=== PATIENT | male | born 1955 | race Caucasian/White ===

== ENCOUNTER 2017-05-05 01:21 | Outpatient (CLI) | payer BC ==
[~2017-05-05] VITALS: Ht 182.9 cm; Wt 104.3 kg
--- NOTE | ~2017-05-05 | HP ---
PATIENT: JORDON MARKS MEDICAL RECORD: [id number] ACCOUNT: [id number] LOCATION:[address] : 51 ADMISSION DATE: 05/05/17 HISTORY AND PHYSICAL EXAMINATION ADMITTING DIAGNOSES: 1. Acute anterior myocardial infarction. 2. Coronary artery disease. 3. Previous percutaneous transluminal coronary angioplasty and stenting to the left anterior descending. 4. Hypertension. 5. Hyperlipidemia. HISTORY OF PRESENT ILLNESS: Mr. Marks presents with acute onset of chest discomfort. EKG is compatible with an acute anterolateral myocardial infarction. He does have a history of angioplasty and PTCA and stent to the LAD, hypertension, and hyperlipidemia. REVIEW OF SYSTEMS: The patient reports easy bruising but reports no swollen glands. The patient reports no fever, no night sweats, no significant weight gain, no significant weight loss. No significant exercise tolerance. The patient reports no dry eyes, no irritation, no vision change. Patient reports no difficulty hearing and no ear pain. Patient reports no frequent nose bleeds or nose and sinus problems. Patient reports on arm pain on exertion. No shortness of breath while lying down. No history of heart murmur. Patient reports no cough, no wheezing or coughing up blood. Patient reports no abdominal pain, no vomiting. Normal appetite. No diarrhea and not vomiting blood. No nausea and no constipation. Patient reports no incontinence. No difficulty urinating. No hematuria. No increased frequency. Patient reports no muscle aches. No weakness, no arthralgias, no back pain. No swelling of the extremities. Patient reports no abnormal mole, no jaundice, no rashes. Reports no loss of consciousness. No weakness and no numbness. No seizures, dizziness, or headaches. The patient reports no depression, no sleep disturbance, feeling safe in a relationship and no alcohol abuse. Patient reports on fatigue. Reports no runny nose or sinus pressure. No itching, no hives, and no frequent sneezing. PHYSICAL EXAMINATION: GENERAL APPEARANCE: Well-nourished, well-developed, appears stated age. Level of distress, comfortable. PSYCHIATRIC: Mental status, alert, normal affect. Orientation, oriented to time, place and person. EYES: Lids and conjunctiva, noninjected. No discharge, no pallor. ENT: Lips, teeth, gums, normal dentition. Oropharynx, no cyanosis, no pallor. NECK: Carotid arteries, bilateral normal upstroke, no bruits, no thrills. JUGULAR VEINS: No jugular venous pressure or distention. CERVICAL LYMPH NODES: Nontender, nonenlarged. THYROID: Not enlarged. Nontender. No nodules. LUNGS: Respiratory effort, unlabored. CHEST: Normal curvature. No thoracic deformity. No chest wall tenderness. Percussion, resonant. Auscultation, clear. No wheezes, no rales, no rhonchi. CARDIOVASCULAR: Precordial exam, nondisplaced. No heaves or pericardial thrills. Rate and rhythm, regular. Heart sounds, normal S1, normal S2. No S3, no gallop, no rub. Systolic murmur, not heard. Diastolic murmur, not heard. EXTREMITIES: No cyanosis, no edema. Peripheral pulses, full and equal in all HISTORY AND PHYSICAL [id number] JORDON MARKS extremities, except as noted. No bruits appreciated. ABDOMEN: Soft, nondistended. Normal aorta. No bruit. Nontender. No masses. Liver, nontender, no hepatomegaly. Spleen, nontender, no splenomegaly. MUSCULOSKELETAL: No joint tenderness. No joint swelling. No erythema. NEUROLOGICAL: Normal gait, normal strength, normal tone. SKIN: Warm and dry. OVERALL IMPRESSION: Acute anterior myocardial infarction. PLAN: We will proceed with coronary angiography. Further care depends upon the findings of the angiography. TRANSINT:[id number] Voice Confirmation ID: [id number] DOCUMENT ID: [id number] JOVANY FONG MD at 1153 CC: [id number] DICTATION DATE: 05/05/17 020 SWITCHMAN SUPERVISOR: 05/05/17 0225 [facility] [address] [place] [address]
--- NOTE | ~2017-05-05 | OP ---
PATIENT NAME: JORDON MARKS MEDICAL RECORD: [id number] :51 LOCATION:D.M2 D.0 ADMISSION DATE: SURGEON: JOVANY FONG MD DATE OF OPERATION: 05/05/2017 PROCEDURES: 1. PTCA and stent to LAD. 2. Left heart catheterization. 3. Selective coronary angiography. 4. Left ventriculogram. INDICATIONS: Acute anterior myocardial infarction. PROCEDURE IN DETAIL: After informed consent was obtained and after detailed explanation of risks, benefits as well as alternative therapies, the patient elected to proceed with angiogram and angioplasty. The right femoral area was prepped and draped in normal sterile fashion. The right femoral artery was cannulated via modified Seldinger technique with placement of 6-Kyrgyz sheath. All catheters exchanged through this sheath. FINDINGS: The left ventriculogram was performed in standard 30-degree REED view reveals anteroapical hypokinesis, ejection fraction 40%. SELECTIVE CORONARY ANGIOGRAPHY: 1. Left main showed no significant angiographic disease. 2. Left anterior descending has a 90% stenosis proximally, followed by 80% stenosis in the mid vessel, between these are previously placed stents that are widely patent. 3. Left circumflex has mild irregularities to moderate irregularities but no flow-limiting stenosis. 4. Right coronary has gdtm-ka-ilutprkz irregularities but no discrete flow-limiting stenosis. PTCA AND STENT OF THE LAD: The stents used were 2.25 x 22 and 2.5 x 18, both [place] stents. Result was 0% residual stenosis. OVERALL IMPRESSION: Successful percutaneous transluminal coronary angioplasty and stent of the left anterior descending going from 90% initial stenosis to 0% residual. TRANSINT:[id number] Voice Confirmation ID: [id number] DOCUMENT ID: [id number] JOVANY FONG MD at 1153 CC: [id number] DICTATION DATE: 05/05/17 0243 CHANGE MANAGEMENT: 05/05/17 0325 [address] [place] [id number] [place] [id number]
--- NOTE | ~2017-05-05 | HEMODYNAMI ---
PATIENT:JORDON MARKS MEDICAL RECORD: [id number] : 51 LOCATION:[facility] ADMISSION DATE: 05/05/17 Generatedon:05/05/20172:46 Patient name: JORDON MARKS Patient #: [id number] SSN: : 1955 Date of study: 05/05/2017 Page: Of Hemodynamic Procedure Report Patient Data Patient Demographics Procedure consent was obtained First Name: JORDON Gender: Male Last Name: KENDRICK : 1955 Patient #: [id number] Age: 62 year(s) Race: Unknown Additional ID: [id number] Contact details Address: [place] [address] State: [place] City: [place] Zip code: [address] Admission Admission Data Admission Date: 05/05/2017 Admission Time: 1:21 Procedure Procedure Types Cath Procedure Diagnostic Procedure Sedation Charges Moderate Sedation up to 15 minutes [facility] w/Coronaries PCI Procedure AMI/SVG/QUILL STRIPPER PTCA or Stent AMI-BMS/DONTE Initial Procedure Description Procedure Date Procedure Date: 05/05/2017 Procedure Start Time: 2:23 Procedure End Time: 2:45 Procedure Staff Name Function Jg Peña MD Performing Physician Judd Gonzales RN Nurse Klever Swift RT Scrub Tali Perez RT Scrub John Harper RT Monitor Procedure Data Cath Procedure Fluoroscopy Diagnostic fluoroscopy Total fluoroscopy Time: 3.7 time: 3.7 min min Diagnostic fluoroscopy Total fluoroscopy dose: 751 dose: 751 mGy mGy Contrast Material Contrast Material Type Amount (ml) Isovue 300 71 Entry Location Entry Primary Successful Side Size Upsize Upsize Entry Closure Succes sful Closure Location (Fr) 1 (Fr) 2 (Fr) Remarks Device Remarks Femoral Right 6 Fr Exoseal artery Short Estimated blood loss: 10 ml Diagnostic catheters Device Type Used For End Catheter Placement MULTIPACK Pigtail 5 Fr Procedure catheter MULTIPACK JL 4.0 5Fr Procedure catheter MULTIPACK 3DRC 5Fr Procedure catheter Procedure Complications No complications Procedure Medications Medication Administration Route Dosage Oxygen NC 2 l/min Lidocaine 2% added to field 20 Heparin Flush Bag added to field 2 bags (1000units/500ml NS) 0.9% NaCl I.V. 100 ml/hr Versed I.V. 1 mg Fentanyl I.V. 50 mcg Versed I.V. 1 mg Fentanyl I.V. 50 mcg Heparin Bolus I.V. 4000 units Integrilin (Bolus I.V. 9 ml 2mg/ml) Lopressor I.V. 5 mg Hemodynamics Rest Heart Rate: 85 (bpm) Pressure Samples Time Site Value (mmHg) Purpose Heart Use Rate(bpm) 2:24 LV 95/12,22 Snapshot 87 Snapshots Pre Cath Intra NCS Post Cath Vital Signs Time Heart Resp SPO2 NIBP (mmHg) Rhythm Pain Sedation Rate (ipm) (%) Status Level (bpm) 2:16:27 87 21 97 125/75(104) NSR w/ ST 0 (11) 10(A) Elevation , No pain 2:21:04 85 14 97 118/78(98) NSR w/ ST 0 (11) 10(A) Elevation , No pain 2:25:42 90 15 94 116/73(94) NSR w/ ST 0 (11) 9(A) Elevation , No pain 2:30:19 92 15 94 115/81(108) NSR w/ ST 0 (11) 9(A) Elevation , No pain 2:34:57 94 16 94 121/72(88) NSR w/ ST 0 (11) 9(A) Elevation , No pain 2:39:18 84 12 94 109/77(99) NSR w/ ST 0 (11) 10(A) Elevation , No pain 2:43:54 85 13 96 112/78(101) NSR w/ ST 0 (11) 10(A) Elevation , No pain Medications Time Medication Route Dose Verified Delivered Reason Notes Effectiveness by by 2:18:13 Oxygen NC 2 Jg Whaley used for l/min Mariana Gonzales relations manager 2:18:19 Lidocaine 2% added 20ml Jg Gregorio for local to vial Mariana Peña MD anesthetic field 2:18:24 Heparin Flush added 2 Jg Gregorio used for Bag to bags Mariana Peña MD procedure (1000units/500ml field NS) 2:18:34 0.9% NaCl I.V. 100 Jg Buffie Per physician ml/hr Mariana Gonzales RN 2:18:44 Versed I.V. 1 mg Jg Lopezie for sedation Mariana Gonzales RN 2:18:49 Fentanyl I.V. 50 Jg Johnie for sedation mcg Mariana Gonzales RN 2:22:07 Versed I.V. 1 mg Jg Lopezie for sedation Mariana Gonzales RN 2:22:11 Fentanyl I.V. 50 Jg Whaley for sedation mcg Mariana Gonzales RN 2:27:47 Heparin Bolus I.V. 4000 Jg Lopezie for verifie d units Mariana Gonzales RN anticoagulation with dr peña 2:29:17 Integrilin I.V. 9 ml Jg Whaley for wasted 1 (Bolus 2mg/ml) Mariana Gonzales RN antiplatelet ml of therapy vial 2:36:21 Lopressor I.V. 5 mg Jg Whaley Per physician Mariana Gonzales RN Procedure Log Time Note 2:00:20 Judd Gonzales RN sent for patient. Start room use. 2:05:22 Time tracking: Call back 2:05:26 Plan of Care:Hemodynamics will remain stable., Cardiac rhythm will remain stable., Comfort level will be maintained., Respiratory function will remain adequate., Patient/ family verbilizes understanding of procedure., Procedure tolerated without complication., Recovers from procedure without complications.. 2:10:18 Patient arrives emergently. 2:10:19 Patient received from ED to CCL 1 Alert and oriented. Tansferred to table in Supine position. 2:10:20 Warm blankets applied, and yuval hugger turned on for patient comfort. 2:10:21 Correct patient and procedure confirmed by team. 2:10:22 Signed procedure consent form obtained from patient. 2:10:23 ECG and BP/O2 sat monitors applied to patient. 2:15:39 Vital chart was started 2:15:41 Baseline sample Acquired. 2:15:47 Rhythm: sinus rhythm 2:15:47 Full Disclosure recording started 2:16:15 H&P Date Dictated: 05/05/2017 Emergent; H&P N/A. 2:16:18 Pre-procedure instructions explained to patient. 2:16:18 Pre-op teaching completed and patient verbalized understanding. 2:16:20 Family in waiting room. 2:16:22 Patient NPO since Midnight. 2:16:24 Is the patient allergic to Iodine/contrast media? No. 2:16:26 Is patient on blood thinner?Yes 2:16:29 ACC The patient was administered the following blood thiners within the last 24 hours: ACCPlavix 2:16:30 Patient diabetic? No. 2:16:33 Previous problem with sedation/anesthesia? No ? 2:16:34 Snore? Yes 2:16:38 Sleep apnea? Yes 2:16:40 Deviated septum? No 2:16:40 Opens mouth fully? Yes 2:16:41 Sticks out tongue? Yes 2:16:43 Airway obstruction? No ? 2:16:45 Dentures? No ? 2:16:48 Pre procedure: right dorsailis pedis pulse 1+ Palpable, but thready & weak; easily obliterated 2:16:52 Patient pain scale 4/10 ?. 2:17:01 IV patent on arrival in right antecubital with 0.9% NaCl at [facility]. 2:17:03 Lab results completed and on chart. 2:17:09 Right groin area was prepped with chlora-prep and draped in sterile fashion 2:17:10 Alarms reviewed by R. N. 2:17:10 Sharps counted by scrub and verified by R.N. 2:17:12 --------ALL STOP TIME OUT------ 2:17:12 Final Timeout: patient, procedure, and site verified with staff and physician. All members of the team are in agreement. 2:17:16 Right groin site verified by team. 2:17:18 Physical assessment completed. ASA score P 2 - A patient with mild systemic disease as per Jg Peña MD. 2:17:21 Sedation plan: IV Moderate Sedation Medication:Versed, Fentanyl 2:18:13 Oxygen 2 l/min NC was administered by Judd Gonzales RN; used for procedure; 2:18:19 Lidocaine 2% 20ml vial added to field was administered by Jg Peña MD; for local anesthetic; 2:18:24 Heparin Flush Bag (1000units/500ml NS) 2 bags added to field was administered by Jg Peña MD; used for procedure; 2:18:34 0.9% NaCl 100 ml/hr I.V. was administered by Judd Gonzales RN; Per physician; 2:18:44 Versed 1 mg I.V. was administered by Judd Gonzales RN; for sedation; 2:18:49 Fentanyl 50 mcg I.V. was administered by Judd Gonzales RN; for sedation; 2:21:53 Zero performed for pressure channel P1 2:22:07 Versed 1 mg I.V. was administered by Judd Gonzales RN; for sedation; 2:22:11 Fentanyl 50 mcg I.V. was administered by Judd Gonzales RN; for sedation; 2:23:19 Procedure started. 2:23:25 Local anesthetic to right femoral artery with Lidocaine 2% by Jg Peña MD.INITIAL ACCESS ONLY 2:23:26 Use device set Femoral Dx 2:23:27 ACIST Syringe (53911) opened to sterile field. 2:23:28 Bag Decanter (2001S) opened to sterile field. 2:23:29 Medline Cath Pack ([id number]) opened to sterile field. 2:23:31 Tegaderm 4 x 4 (1626W) opened to sterile field. 2:23:32 ACIST Hand Control (23114) opened to sterile field. 2:23:33 ACIST Manifold (04884) opened to sterile field. 2:23:36 PERCUTANEOUS ENTRY 19GA needle opened to sterile field. 2:23:38 DIAGNOSTIC WIRE .035 260cm J wire (373767) opened to sterile field. 2:23:44 DIAGNOSTIC Multipack 5Fr catheter set (HH2054) opened to sterile field. 2:23:55 SHEATH 6FR Nixon (AIM179) opened to sterile field. 2:23:56 INFLATOR Merit BasixCompak (AI2289) opened to sterile field. 2:24:07 A 6 Fr Short sheath was inserted into the Right Femoral artery 2:24:53 A MULTIPACK Pigtail 5 Fr catheter was advanced over the wire and used for Procedure. 2:25:03 LV gram done using REED 2:25:05 Injector settings: Ml/sec: 10, Volume: 20, 2:25:10 EF : 40 % 2:25:15 Catheter exchanged over wire. 2:25:20 A MULTIPACK JL 4.0 5Fr catheter was advanced over the wire and used for Procedure. 2:25:54 LCA angiography performed. 2:27:03 Catheter removed. 2:27:11 A MULTIPACK 3DRC 5Fr catheter was advanced over the wire and used for Procedure. 2:27:37 RCA angiography performed. 2::43 Catheter removed. 2::47 Heparin Bolus 4000 units I.V. was administered by Judd Gonzales RN; for anticoagulation; verified with dr peña 2:28:34 GUIDE 6FR XBLAD 3.5 catheter ([id number]) opened to sterile field. 2:28:52 CHOICE PT Extra Support 182cm wire ([id number]) opened to sterile field. 2:29:02 6 Fr xblad 3.5 guide catheter was inserted over the wire 2:29:07 choice pt wire advanced. 2:29:17 Integrilin (Bolus 2mg/ml) 9 ml I.V. was administered by Judd Gonzales RN; for antiplatelet therapy; wasted 1 ml of vial 2:31:48 Inflation Number: 1 A JULIUS RX 2.25 x 22 stent ([id number]) was prepped and advanced across the Dist LAD. The stent was deployed at 17 DARLENE for 0:10 (min:sec). 2:32:01 Inflation number: 1 The stent balloon was then re-inflated across the Prox LAD to 17 DARLENE for 0:10 (min:sec). 2:33:20 Stent catheter was removed intact over wire. 2:33:43 Inflation Number: 2 A JULIUS RX 2.5 x 18 stent ([id number]) was prepped and advanced across the Prox LAD. The stent was deployed at 21 DARLENE for 0:10 (min:sec). 2:34:57 Wire removed. 2:34:58 Guide catheter removed. 2:35:02 EXOSEAL 6Fr (EX600) opened to sterile field. 2:35:12 Sheath removed intact; hemostasis achieved with Exoseal to the Right Femoral artery. 2:35:13 Procedure ended.(Physican Out) 2:36:21 Lopressor 5 mg I.V. was administered by Judd Gonzales RN; Per physician; 2:38:52 Fluoroscopy time 03.70 minutes. 2:39:15 Fluoroscopy dose: 751 mGy 2:39:15 Flurop Dose total: 751 2:39:20 Contrast amount:Isovue 300 71ml. 2:39:21 Sharps counted by scrub and verified by R.N. 2:39:30 Insertion/operative site no bleeding no hematoma. 2:39:40 Post-op/insertion site Right Femoral artery dressed using a 4 x 4 and Tegaderm. 2:39:47 Post right femoral artery:stable, soft, clean and dry 2:40:24 Post Procedure Pulses reassessed and unchanged 2:40:32 Post-procedure physical assessment completed. ASA score P 2 - A patient with mild systemic disease as per Jg Peña MD. 2:40:44 Post procedure rhythm: unchanged. 2:40:48 Estimated blood loss: 10 ml 2:40:50 Post procedure instruction explained to patient.Patient verbalizes understanding. 2:40:50 Patient needs reinforcement of post procedure teaching. 2:41:59 Procedure type changed to Cath procedure, Diagnostic procedure, Sedation Charges, Moderate Sedation up to 15 minutes, LHC, C w/Coronaries, PCI procedure, AMI/SVG/QUILL STRIPPER PTCA or Stent, AMI-BMS/DONTE Initial 2:44:35 IV Extension Set opened to sterile field. 2:45:09 Procedure and supply charges have been captured, reviewed, submitted and are correct. 2:45:19 Procedure Complication : No complications 2:45:23 Vital chart was stopped 2:45:23 See physician's report for complete and final results. 2:45:25 Report given to PCU. 2:45:27 Patient transfered to PCU with Stretcher. 2:45:32 Procedure ended. 2:45:32 Full Disclosure recording stopped 2:45:35 End room use (Document Last) Intervention Summary Intervention Notes Time ActionType Lesion and Equipment Used Action# Pressure Duration Attributes 2:31:48 Place stent Dist LAD JULIUS RX 2.25 x 1 17 00:10 22 stent ([id number]) 2:32:01 Reinflate Prox LAD JULIUS RX 2.25 x 1 17 00:10 stent 22 stent balloon ([id number]) 2:33:43 Place stent Prox LAD JULIUS RX 2.5 x 2 21 00:10 18 stent ([id number]) Device Usage Item Name Manufacture Quantity Catalog Number Hospital Part Current M inimal Lot# / Charge Number Stock Stock Serial# Code ACIST Syringe Acist 1 67719 398635 075709 [id number] 2 0 (16267) Medical Systems Inc Bag Decanter Microtek 1 2001S 718476 30396 007109 5 (2001S) Medical Inc. Medline Cath Cardinal 1 [id number] 451093 29317 252264 5 Pack Store-Locator.com ([id number]) Tegaderm 4 x 4 3M 1 1626W 824403 390305 013796 5 (1626W) ACIST Hand Acist 1 66408 454060 359965 287606 5 Control Medical (77248) Systems Inc ACIST Manifold Acist 1 89377 568895 559665 617662 5 (05669) Medical Systems Inc PERCUTANEOUS Cook Medical 1 R22940 860661 469568 5 ENTRY 19GA needle DIAGNOSTIC [address] [place] 1 988171 666816 155681 783306 3 0 WIRE .035 260cm J wire (060510) DIAGNOSTIC Cardinal 1 ZE7345 772477 53167 659364 3 0 Multipack 5Fr Health catheter set (SQ6708) SHEATH 6FR Terumo 1 ZOB919 695359 748500 914115 4 0 Nixon (LTA016) INFLATOR Merit Merit 1 MI4543 681642 008013 052519 1 5 Pure Digital Technologies (GV8772) MULTIPACK Cardinal 1 409479 5 Pigtail 5 Fr Health catheter MULTIPACK JL Cardinal 1 576780 5 4.0 5Fr Health catheter MULTIPACK 3DRC Cardinal 1 882735 5 5Fr catheter Health GUIDE 6FR Cardinal 1 [id number] 324288 021265 800081 1 0 XBLAD 3.5 Health catheter ([id number]) CHOICE PT Selby 1 [id number] 990708 520494 657431 5 Extra Support Scientific 182cm wire ([id number]) JULIUS RX 2.25 x Medtronic 1 [id number] 336216 9960906 756173 5 [id number] 22 stent ([id number]) JULIUS RX 2.5 x Medtronic 1 [id number] 715601 9939533 126617 5 [id number] 18 stent ([id number]) EXOSEAL 6Fr Cardinal 1 EX600 923011 998588 731110 1 0 (EX600) Health IV Extension Hospira 1 64906-62 812834 68682 038004 5 Set Signature Audit [place] Stage Time Signature Unsigned Intra-Procedure 05/05/2017 John Harper 2:46:52 AM RT(R) Signatures Monitor : John Harper RT Signature : Date : Time : [address] [place] [address]
[2017-05-05 01:39] LABS: BASOPHILS 0.3 % (0-2); EOSINOPHILS 2.7 % (0-7); HEMATOCRIT 49.8 % (42.0-54.0); HEMOGLOBIN 17.4 g/dL (13.5-17.5); IMMATURE GRANULOCYTES 0.2 % (0-5); LYMPHOCYTES 29.3 % (15-50); MCH 31.5 pg (26.0-34.0); MCHC 34.9 g/dL (31.0-37.0); MCV 90.2 fL (80.0-100.0); MEAN PLATELET VOLUME 11.7 fL (7.4-10.4); MONOCYTES 10.3 % (2-11); NEUTROPHILS 57.2 % (40-80); PLATELET COUNT 185 10x3/uL (130-400); RBC 5.52 10x6/uL (4.20-6.10); RDW 13.8 % (11.5-14.5); WBC 9.5 10x3/uL (4.8-10.8)
[2017-05-05 01:55] LABS: APTT 23.8 SECONDS (22.8-39.4); INR 0.93 (0.85-1.17); PROTIME 12.1 SECONDS (11.6-15.0)
[2017-05-05 01:56] LABS: D-DIMER-QUANTITATIVE 0.48 ug/mLFEU (0.20-0.54)
[2017-05-05 01:59] LABS: ALBUMIN 3.9 g/dL (3.4-5.0); ALKALINE PHOSPHATASE 78 U/L (46-116); ALT (SGPT) 30 U/L (10-68); BILIRUBIN - TOTAL 0.96 mg/dL (0.2-1.3); CALC OSMOLALITY 283 mosm/kg (275-300); CALCIUM 9.4 mg/dL (8.5-10.1); CARBON DIOXIDE 23.3 mmol/L (21.0-32.0); CHLORIDE - SERUM 103 mmol/L (98-107); CREATININE - SERUM 1.9 mg/dL (0.6-1.3); GLUCOSE 135 mg/dL (74-106); POTASSIUM - SERUM 3.5 mmol/L (3.5-5.1); PROTEIN - SERUM 7.5 g/dL (6.4-8.2); SODIUM 140 mmol/L (136-145); UREA NITROGEN 21 mg/dL (7-18); eGFR NON AFRICAN AMERICAN 38 mL/min (90-120)
[2017-05-05 02:24] LABS: CHOL - HDL RATIO 4.4 ratio (2.3-4.9); CHOLESTEROL, TOTAL 148 mg/dL (0-200); CREATINE KINASE 89 UL (21-232); HDL CHOLESTEROL 34 mg/dL (32-96); LDL CHOLESTEROL 88 mg/dL (0-100); LDL-HDL RATIO 2.6 ratio (1.5-3.5); MAGNESIUM - SERUM 2.2 mg/dL (1.8-2.4); PRO BNP 41 pg/mL (0-125); THYROID STIMULATING HORMONE 2.61 uIU/mL (0.36-3.74); TRIGLYCERIDE 131 mg/dL (30-200); TROPONIN-I < 0.017 ng/mL (0.000-0.060)
[2017-05-05] MEDS ORDERED: ZYLOPRIM100 MG PO (02:56)
[2017-05-05] MEDS ORDERED: PROTONIX40 MG PO (02:57)
[2017-05-05] MEDS ORDERED: TRIAMTERENE-HCT1 TA1 PO (02:57)
[2017-05-05] MEDS ORDERED: ZOCOR20 MG PO (02:57)
[2017-05-05] MEDS ORDERED: LOPRESSOR25 MG PO (02:58)
[2017-05-05] MEDS ORDERED: NORVASC5 MG PO (02:58)
[2017-05-05 03:19] VITALS: BP 108/69; BMI 31.2
[2017-05-05 09:51] VITALS: BP 99/69
[2017-05-05 10:45] VITALS: BP 101/73
[2017-05-05 11:13] VITALS: Ht 182.9 cm; Wt 104.3 kg
[2017-05-05] MEDS ORDERED: PLAVIX75 MG PO (14:46)
== END 2017-05-05 15:00 | disposition home or self-care (01) ==
LOC: D.ER 01:21 → D.M2 01:21 → D.CATH 01:21 → EDSTATUS 02:04 → D.M2 02:55 → D.CATH 15:00
PROVIDERS: Family Medicine
DX: I21.09 ST elevation (STEMI) myocardial infarction involving other coronary artery of anterior wall (principal); I25.10 Atherosclerotic heart disease of native coronary artery without angina pectoris; I10 Essential (primary) hypertension; E78.5 Hyperlipidemia, unspecified; Z01.812 Encounter for preprocedural laboratory examination

== ENCOUNTER → 2018-05-31 09:58 | Outpatient (CLI) | payer MEDICARE, BC ==
[2017-05-05 11:13] VITALS: BMI 31.2
[~2018-05-31 09:58] MED LIST: LOPRESSOR25 MG PO; NORVASC5 MG PO; PLAVIX75 MG PO; PROTONIX40 MG PO; TRIAMTERENE-HCT1 TA1 PO; ZOCOR20 MG PO; ZYLOPRIM100 MG PO
== END | disposition home or self-care (01) ==
LOC: D.HCCARDIO 05-24 10:30
PROVIDERS: ATTEND Internal Medicine Cardiovascular Disease
DX: I25.10 Atherosclerotic heart disease of native coronary artery without angina pectoris (principal)

== ENCOUNTER 2018-06-13 11:17 | Outpatient (CLI) | payer MEDICARE, BC ==
[~2018-06-13] VITALS: Ht 182.9 cm; Wt 102.3 kg
--- NOTE | ~2018-06-13 | HEMODYNAMI ---
PATIENT:JORDON MARKS MEDICAL RECORD: [id number] : 51 LOCATION:D.CAT ADMISSION DATE: 06/13/18 Generatedon:06/13/201814:49 Patient name: JORDON MARKS Patient #: [id number] SSN: : 1955 Date of study: 06/13/2018 Page: Of Hemodynamic Procedure Report Patient Data Patient Demographics Procedure consent was obtained First Name: JORDON Gender: Male Last Name: KENDRICK : 1955 Middle Initial: QUINTIN Age: 63 year(s) Patient #: [id number] Race: Unknown Additional ID: [id number] Contact details Address: [place] [address] State: [place] City: [place] Zip code: [address] Past Medical History Allergies: No known allergies Admission Admission Data Admission Date: 06/13/2018 Admission Time: 11:17 Weight (lbs.): 237 Weight (kg.): 107.5 Lab Results Lab Result Date: 06/13/2018 Lab Result Time: 0:00 Biochemistry Name Units Result Min Max BUN mg/dl 20 --(----)*- 7 18 Creatinine mg/dl 1.5 --(----)-* 0.6 1.3 CBC Name Units Result Min Max Hematocrit % 48 --(-*--)-- 42 54 Hemoglobin g/dl 16.8 --(---*)-- 13.5 17.5 Procedure Procedure Types Cath Procedure Diagnostic Procedure LHC LH w/Coronaries Sedation Charges Moderate Sedation up to 45 minutes PCI Procedure Coronary Stent Coronary Stent Initial Procedure Description Procedure Date Procedure Date: 06/13/2018 Procedure Start Time: 13:58 Procedure End Time: 14:46 Procedure Staff Name Function Moe Chow MD Performing Physician Tali Perez RT Monitor Johnathan Briceno RT Scrub Zainab Gonzales RN Nurse Sean Perez RN Screen Vent Binder Judd Gonzales RN Screen Vent Binder Procedure Data Cath Procedure Fluoroscopy Diagnostic fluoroscopy Total fluoroscopy Time: time: 12.9 min 12.9 min Diagnostic fluoroscopy Total fluoroscopy dose: dose: 1467 mGy 1467 mGy Contrast Material Contrast Material Type Amount (ml) Isovue 300 181 Entry Location Entry Primary Successful Side Size Upsize Upsize Entry Closure Ruby ccessful Closure Location (Fr) 1 (Fr) 2 (Fr) Remarks Device Remarks Radial Right 6 Fr Mechanical artery Short Compression Femoral Right 5 Fr 6 Fr Exoseal artery Short Estimated blood loss: 10 ml Diagnostic catheters Device Type Used For End Catheter Placement DIAGNOSTIC Ramos 110cm Procedure 5Fr catheter ([id number]) MULTIPACK JL 4.0 5Fr Procedure catheter MULTIPACK 3DRC 5Fr Procedure catheter MULTIPACK Pigtail 5 Fr Procedure catheter Procedure Complications No complications Procedure Medications Medication Administration Route Dosage 0.9% NaCl I.V. 100 ml/hr Oxygen etCO2 Nasal cannula 2 l/min Lidocaine 2% added to field 20 Heparin Flush Bag added to field 2 bags (1000units/500ml NS) Radial Cocktail added to field 1 syringe (Verapomil 2mg/Nitro 400mcg/Heparin 1500units) Versed I.V. 2 mg Fentanyl I.V. 50 mcg Versed I.V. 1 mg Fentanyl I.V. 50 mcg Nitroglycerin IC/IA I.C. 100 mcg Heparin Bolus I.V. 31847 units Nitroglycerin IC/IA I.C. 100 mcg Versed I.V. 1 mg Hemodynamics Rest HGB: 16.8 (g/dl) Heart Rate: 63 (bpm) Pressure Samples Time Site Value (mmHg) Purpose Heart Use Rate(bpm) 14:15 LV 98/5,11 EDP 59 14:16 AO 103/56(76) Pullback 61 14:16 LV 111/16,5 Pullback 61 Gradients Valve Time Site 1 Site 2 Mean SEP/DFP Peak To Heart Use (mmHg) (sec/min) Peak Rate (mmHg) (bpm) Aortic 14:16 LV AO 6 14 8 61 111/16,5 103/56(76) Calculations Valve P-P Mean Valve Index Valve Source Name Gradient Area Flow (cm2) Aortic 8 6 8 6 Snapshots Pre Cath Intra NCS Post Cath Vital Signs Time Heart Resp SPO2 etCO2 NIBP (mmHg) Rhythm Pain Sedation Rate (ipm) (%) (mmHg) Status Level (bpm) 13:42:09 62 27 99 29.8 144/93(133) NSR 0 (11) 10(A) , No pain 13:46:29 59 17 100 35 134/79(115) NSR 0 (11) 10(A) , No pain 13:50:49 55 13 96 31.3 129/70(116) NSR 0 (11) 10(A) , No pain 13:55:03 56 15 93 32.1 129/84(105) NSR 0 (11) 10(A) , No pain 13:59:19 56 14 95 35 132/83(104) NSR 0 (11) 9(A) , No pain 14:03:29 64 10 96 35.8 112/75(90) NSR 0 (11) 9(A) , No pain 14:07:43 62 10 93 35 99/60(90) NSR 0 (11) 9(A) , No pain 14:11:53 62 10 96 34.3 110/67(82) NSR 0 (11) 9(A) , No pain 14:16:09 59 12 96 43.3 103/64(82) NSR 0 (11) 9(A) , No pain 14:20:23 57 10 97 40.2 105/60(87) NSR 0 (11) 9(A) , No pain 14:24:35 63 13 97 23.1 104/59(85) NSR 0 (11) 9(A) , No pain 14:28:49 61 11 95 35.8 104/57(90) NSR 0 (11) 9(A) , No pain 14:33:03 61 12 97 35.8 101/63(82) NSR 0 (11) 9(A) , No pain 14:37:13 64 12 97 35 109/69(84) NSR 0 (11) 9(A) , No pain 14:41:22 63 14 96 32 97/58(78) NSR 0 (11) 10(A) , No pain 14:45:34 60 13 96 32 104/60(82) NSR 0 (11) 10(A) , No pain Medications Time Medication Route Dose Verified Delivered Reason Not es Effectiveness by by 13:41:26 0.9% NaCl I.V. 100 Moe Zainab used for ml/hr Geraldo Gonzales fertilizer loader 13:41:33 Oxygen etCO2 2 l/min Moe Zainab used for Nasal Geraldo Gonzales procedure cannula RN 13:41:40 Lidocaine 2% added 20ml Moe Moe used for to vial Geraldo Chow MD procedure field 13:41:45 Heparin Flush added 2 bags Moe Moe used for Bag to Geraldo Chow MD procedure (1000units/500ml field NS) 13:55:20 Versed I.V. 2 mg Moe Zainab for sedation Geraldo Gonzales RN 13:55:28 Fentanyl I.V. 50 mcg Moe Zainab for sedation Geraldo Gonzales RN 14:01:09 Versed I.V. 1 mg Moe Buffie for sedation Geraldo Gonzales RN 14:01:12 Fentanyl I.V. 50 mcg Moe Zainab for sedation Geraldo Gonzales RN 14:01:57 Radial Cocktail added 1 Moe Zainab used for (Verapomil to syringe Geraldo Gonzales procedure 2mg/Nitro field RN 400mcg/Heparin 1500units) 14:23:08 Nitroglycerin I.C. 100 mcg Moe Moe for IC/IA Geraldo Chow MD vasodilation 14:24:14 Heparin Bolus I.V. 10,000 Moe Buffie for shantanu ified units Geraldo Gonzales RN anticoagulation with dr chow 14:39:28 Nitroglycerin I.C. 100 mcg Moe Moe for IC/IA Geraldo Chow MD vasodilation 14:39:42 Versed I.V. 1 mg Moe Moe for sedation Geraldo Chow MD Procedure Log Time Note 13:09:51 Signed procedure consent form obtained from patient. 13:09:52 Diagnostic Cath status Elective 13:09:53 Time tracking: Regular hours (M-F 7:00 - 5:00) 13:09:56 Plan of Care:Hemodynamics will remain stable., Cardiac rhythm will remain stable., Comfort level will be maintained., Respiratory function will remain adequate., Patient/ family verbilizes understanding of procedure., Procedure tolerated without complication., Recovers from procedure without complications.. 13:18:29 H&P Date Dictated: 05/11/2018 Within 30 days and on chart., H&P Addendum completed by physician on day of procedure. (MUST COMPLETE FOR ALL OUTPATIENTS). 13:18:36 Patient allergic to No known allergies 13:20:57 Lab Result : BUN 20 mg/dl 13:20:57 Lab Result : Creatinine 1.5 mg/dl 13:20:57 Lab Result : Hematocrit 48 % 13:20:57 Lab Result : Hemoglobin 16.8 g/dl 13:26:15 Sean Perez RN sent for patient. Start room use. 13:32:56 Patient received from Pre/Post Procedure Room to CCL 1 Alert and oriented. Tansferred to table in Supine position. 13:32:58 Warm blankets applied, and yuval hugger turned on for patient comfort. 13:32:58 Correct patient and procedure confirmed by team. 13:32:59 ECG and BP/O2 sat monitors applied to patient. 13:38:31 Vital chart was started 13:41:24 Baseline sample Acquired. 13:41:26 0.9% NaCl 100 ml/hr I.V. was administered by Zainab Gonzales RN; used for procedure; 13:41:27 Rhythm: sinus rhythm 13:41:33 Oxygen 2 l/min etCO2 Nasal cannula was administered by Zainab Gonzales RN; used for procedure; 13:41:40 Lidocaine 2% 20ml vial added to field was administered by Moe Chow MD; used for procedure; 13:41:45 Heparin Flush Bag (1000units/500ml NS) 2 bags added to field was administered by Moe Chow MD; used for procedure; 13:44:03 Pre-procedure instructions explained to patient. 13:44:03 Pre-op teaching completed and patient verbalized understanding. 13:44:05 Family in patients room. 13:44:06 Patient NPO since Midnight. 13:44:08 Is patient on blood thinner?Yes 13:44:10 ACC The patient was administered the following blood thiners within the last 24 hours: ACCPlavix 13:44:12 Patient diabetic? No. 13:44:15 Previous problem with sedation/anesthesia? No ? 13:44:15 Snore? Yes 13:44:16 Sleep apnea? No 13:44:18 Deviated septum? No 13:44:19 Opens mouth fully? Yes 13:44:20 Sticks out tongue? Yes 13:44:23 Airway obstruction? No ? 13:44:25 Dentures? No ? 13:44:27 Modified Kwame's test Ulnar < 7 seconds 13:44:29 Patient pain scale 0/10 ?. 13:44:37 IV patent on arrival in left hand with 0.9% NaCl at O. 13:44:40 Lab results completed and on chart. 13:44:42 Right Radial & Right Groin area was prepped with chlora-prep and draped in sterile fashion 13:44:43 Alarms reviewed by R. N. 13:44:43 Sharps counted by scrub and verified by R.N. 13:44:47 Use device set Radial Dx or PCI 13:44:47 ACIST Syringe (53890) opened to sterile field. 13:44:49 Bag Decanter (2002S) opened to sterile field. 13:44:49 ACIST Hand Control (02042) opened to sterile field. 13:44:50 ACIST Manifold (79457) opened to sterile field. 13:44:50 Tegaderm 4 x 4 (1626W) opened to sterile field. 13:44:51 Medline Cath Pack ([id number]) opened to sterile field. 13:44:52 DIAGNOSTIC WIRE .035 260cm J wire (798354) opened to sterile field. 13:44:52 MBrace Wrist Support ([id number]) opened to sterile field. 13:44:55 SHEATH 6FR Slender (15-1060) opened to sterile field. 13:44:59 NEEDLE Cook 21G 4cm Radial (P91007) opened to sterile field. 13:48:29 Patient Weight : 237 lbs 13:50:44 Zero performed for pressure channel P1 13:54:15 --------ALL STOP TIME OUT------ 13:54:15 Final Timeout: patient, procedure, and site verified with staff and physician. All members of the team are in agreement. 13:54:18 Right Radial & Right Groin site verified by team. 13:54:32 Maximum allowable Isovue 300 dose 300ml. Physician notified. (300ml for normal creatinines. For patients with creatinine of 1.7 or higher multiply weight(kg) x 5 divided by creatinine.) 13:54:36 Fire Safety Assessment: A--An alcohol-based skin anteseptic being used preoperatively., C--Open oxygen or nitrous oxide is being used., D--An ESU, laser, or fiber-optic light is being used. 13:54:39 Physical assessment completed. ASA score P 2 - A patient with mild systemic disease as per Moe Chow MD. 13:54:42 Sedation plan: IV Moderate Sedation Medication:Versed, Fentanyl 13:54:55 Zero performed for pressure channel P1 13:55:20 Versed 2 mg I.V. was administered by Zainab Gonzales RN; for sedation; 13:55:28 Fentanyl 50 mcg I.V. was administered by Zainab Gonzales RN; for sedation; 13:57:39 Procedure started. 13:57:40 Full Disclosure recording started 13:58:16 Local anesthetic to right radial artery with Lidocaine 2% by Moe Chow MD.INITIAL ACCESS ONLY 14:01:09 Versed 1 mg I.V. was administered by Judd Gonzales RN; for sedation; 14:01:12 Fentanyl 50 mcg I.V. was administered by Zainab Gonzales RN; for sedation; 14:01:27 A 6 Fr Short sheath was inserted into the Right Radial artery 14:01:57 Radial Cocktail (Verapomil 2mg/Nitro 400mcg/Heparin 1500units) 1 syringe added to field was administered by Zainab Gonzales RN; used for procedure; 14:02:12 A DIAGNOSTIC Ramos 110cm 5Fr catheter (240460) was advanced over the wire and used for Procedure. 14:06:59 CATH REMOVED. UNABLE TO ENGAGE 14:07:18 SHEATH 5FR [place] (HZD940) opened to sterile field. 14:07:26 Use device set Multipack Set 14:07:28 DIAGNOSTIC Multipack 5Fr catheter set ([id number]) opened to sterile field. 14:07:38 Local anesthetic to right femoral artery with Lidocaine 2% by Moe Chow MD.ADDITIONAL ACCESS 14:09:05 A 5 Fr sheath was inserted into the Right Femoral artery 14:09:30 Zero performed for pressure channel P1 14:10:15 A MULTIPACK JL 4.0 5Fr catheter was advanced over the wire and used for Procedure. 14:11:55 LCA angiography performed. 14:11:57 Catheter exchanged over wire. 14:12:24 A MULTIPACK 3DRC 5Fr catheter was advanced over the wire and used for Procedure. 14:13:49 RCA angiography performed. 14:13:51 Catheter exchanged over wire. 14:15:07 A MULTIPACK Pigtail 5 Fr catheter was advanced over the wire and used for Procedure. 14:15:12 LV gram done using REED 14:15:16 Injector settings: Ml/sec: 10, Volume: 20, 14:15:52 LV hemodynamics recorded. 14:16:09 EF : 35 % 14:18:02 Catheter exchanged over wire. 14:18:19 SHEATH 6FR [place] (ZCN381) opened to sterile field. 14:18:47 BMW 300cm Straight [place] 2 wire (7467765) opened to sterile field. 14:18:47 INFLATOR Merit BasixCompak (JN5712) opened to sterile field. 14:18:48 TUBING High Pressure Extension Tubing (Geraldo) (FJ5200W) opened to sterile field. 14:19:45 Sheath upsized to a 6 Fr Short. 14:20:19 GUIDE 6FR EBU 3.5 catheter ([id number]) opened to sterile field. 14:21:43 6 Fr 3.5 guide catheter was inserted over the wire 14:23:08 Nitroglycerin IC/IA 100 mcg I.C. was administered by Moe Chow MD; for vasodilation; 14:24:14 Heparin Bolus 10,000 units I.V. was administered by Judd Gonzales RN; for anticoagulation; verified with dr chow 14:25:25 BMW 300 wire advanced. 14:30:21 Wire advanced across lesion. 14:34:52 Place stent Inflation Number: 1 A JULIUS OTW 2.25 x 12 stent ([id number]) was prepped and advanced across the Dist CX. The stent was deployed at 10 DARLENE for 0:10 (min:sec). 14:35:46 Stent catheter was removed intact over wire. 14:38:22 Wire removed. 14:38:30 EXOSEAL 6Fr (EX600) opened to sterile field. 14:39:28 Nitroglycerin IC/IA 100 mcg I.C. was administered by Moe Chow MD; for vasodilation; 14:39:42 Versed 1 mg I.V. was administered by Moe Chow MD; for sedation; 14:41:13 Guide catheter removed. 14:41:48 Sheath removed intact; hemostasis achieved with Exoseal to the Right Femoral artery. 14:42:52 Procedure ended.(Physican Out) 14:44:08 TR BAND Large (QLO84ATM) opened to sterile field. 14:44:20 Sheath removed intact; hemostasis achieved with Mechanical Compression to the Right Radial artery. 14:44:30 Fluoroscopy time 12.90 minutes. 14:44:33 Fluoroscopy dose: 1467 mGy 14:44:33 Flurop Dose total: 1467 14:45:00 Contrast amount:Isovue 300 181ml. 14:45:21 TR band inflated with 10cc of air. 14:45:24 Post-op/insertion site Right Femoral artery dressed using a 4 x 4 and Tegaderm. 14:45:27 Post-procedure physical assessment completed. ASA score P 2 - A patient with mild systemic disease as per Moe Chow MD. 14:45:30 Post procedure rhythm: sinus rhythm 14:45:32 Estimated blood loss: 10 ml 14:45:34 Post procedure instruction explained to patient.Patient verbalizes understanding. 14:45:34 Patient needs reinforcement of post procedure teaching. 14:46:06 Procedure type changed to Cath procedure, Diagnostic procedure, LHC, LHC w/Coronaries, Sedation Charges, Moderate Sedation up to 45 minutes, PCI procedure, Coronary Stent, Coronary Stent Initial 14:46:40 Procedure and supply charges have been captured, reviewed, submitted and are correct. 14:46:46 Procedure Complication : No complications 14:46:49 Vital chart was stopped 14:46:49 See physician's report for complete and final results. 14:46:51 Report given to Pre/Post Procedure Room. 14:46:55 Patient transfered to Pre/Post Procedure Room with Bed. 14:46:56 Procedure ended. 14:46:56 Full Disclosure recording stopped 14:47:01 End room use (Document Last) Intervention Summary Intervention Notes Time ActionType Lesion and Equipment Action# Pressure Duration Attributes Used 14:34:52 Place stent Dist CX JULIUS OTW 2.25 1 10 00:10 x 12 stent ([id number]) Device Usage Item Name Manufacture Quantity Catalog Hospital Part Current Minim al Lot# / Number Charge Number Stock Stock Serial# Code ACIST Syringe Acist 1 84589 600975 186218 575943 20 (53083) [employer] Bag Decanter Microtek 1 433403 13249 123813 5 (2002S) Medical Inc. ACIST Hand Acist 1 77023 858714 624998 285569 5 Control Medical (42068) Systems Inc ACIST Acist 1 75667 222723 701392 702201 5 Manifold Medical (02738) Systems Inc Tegaderm 4 x 3M 1 1626W 180733 013810 520307 5 4 (1626W) Medline Cath Medline 1 [id number] 109941 74977 843437 5 Pack ([id number]) DIAGNOSTIC [facility] [place] 1 262973 927748 982052 680835 30 WIRE .035 260cm J wire (923990) MBrace Wrist Advanced 1 140-0250-00 330058 68792 784699 5 Support Vascular (214453055) Dynamics SHEATH 6FR Terumo 1 [id number] 131846 602349 628081 5 Slender (80-1060) NEEDLE Valcon Medical 1 I41800 046763 431447 094648 5 21G 4cm Radial (P23956) DIAGNOSTIC Terumo 1 40-5023 779658 270164 284825 5 Ramos 110cm 5Fr catheter (621412) SHEATH 5FR Terumo 1 YLC870 827041 605389 251171 5 [place] (MTF651) DIAGNOSTIC Cardinal 1 TA5374 099211 02868 150394 30 Multipack 5Fr Health catheter set (BI0412) MULTIPACK JL Cardinal 1 227099 5 4.0 5Fr Health catheter MULTIPACK Cardinal 1 029887 5 3DRC 5Fr Health catheter MULTIPACK Cardinal 1 088753 5 Pigtail 5 Fr Health catheter SHEATH 6FR Terumo 1 LYD873 059423 410314 019880 40 [place] (MRX137) BMW 300cm Fletcher 1 5114810 921911 252740 097124 5 Straight Vascular [place] 2 wire (4012750) INFLATOR Merit 1 XL9485 974136 527181 828404 15 Merit Medical BasixCompak (LM3245) TUBING High Merit 1 DE2094W 490609 73381 973089 10 Pressure Medical Extension Tubing (Chow) (IO2845E) GUIDE 6FR EBU Medtronic 1 VB6XVX65 773433 14695 794462 3 3.5 catheter (WW0OSQ83) JULIUS OTW 2.25 Medtronic 1 [id number] 306558 55863 651033 5 [id number] x 12 stent ([id number]) EXOSEAL 6Fr Cardinal 1 EX600 446970 846083 826433 10 (EX600) Health TR BAND Large Terumo 1 JLW93-EQI 883071 560247 180409 40 ([id number]) Signature Audit [place] Stage Time Signature Unsigned Intra-Procedure 06/13/2018 Tali Perez 2:49:16 PM RT(R) Signatures Monitor : Tali Perez Signature : RT Date : Time : [address] [address]
[2018-06-13] MEDS ORDERED: VASOTEC10 MG PO (11:30)
[2018-06-13] MEDS ORDERED: CRESTOR10 MG PO (11:31)
[2018-06-13] MEDS ORDERED: ASPIRIN81 MG PO (11:31)
[2018-06-13] MEDS ORDERED: LUNESTA2 M1 PO (11:31)
[2018-06-13] MEDS ORDERED: PROLENSA (11:32)
[2018-06-13] MEDS ORDERED: FISH OIL 1,0001 CA1 PO (11:33)
[2018-06-13 11:39] VITALS: BP 141/77; Ht 182.9 cm; Wt 102.3 kg
[2018-06-13 11:46] LABS: BASOPHILS 0.5 % (0-2); EOSINOPHILS 4.8 % (0-7); HEMOGLOBIN 16.8 g/dL (13.5-17.5); IMMATURE GRANULOCYTES 0.3 % (0-5); LYMPHOCYTES 33.2 % (15-50); MCH 32.1 pg (26.0-34.0); MCV 91.6 fL (80.0-100.0); MEAN PLATELET VOLUME 11.7 fL (7.4-10.4); MONOCYTES 11.6 % (2-11); NEUTROPHILS 49.6 % (40-80); PLATELET COUNT 194 10x3/uL (130-400); RBC 5.24 10x6/uL (4.20-6.10); RDW 14.2 % (11.5-14.5); WBC 7.4 10x3/uL (4.8-10.8)
[2018-06-13 11:53] LABS: ANION GAP 11.3 mmol/L (8-16); CALCIUM 8.5 mg/dL (8.5-10.1); CARBON DIOXIDE 28.7 mmol/L (21.0-32.0); CREATININE - SERUM 1.5 mg/dL (0.6-1.3)
--- NOTE | 2018-06-13 14:56 | NUR ---
RECIEVED TO ROOM VIA STRETCHER FROM B2B OUTSIDE SALES REPRESENTATIVE WITH TR BAND TO R/WRIST CDI AND 6 FR EXOSEAL R/GROIN CDI NO BLEEDING OR HEMATOMA NOTED. INSTRUCTED PATIENT TO KEEP HEAD FLAT ON PILLOW WITH RLE STRAIGHT
--- NOTE | 2018-06-13 15:15 | NUR ---
PATIENT TOLERATING SIPS OF PO FLUIDS WITH NAUSEA DENIED. TR BAND IS CDI AND 6 FR EXOSEAL R/GROIN IS CDI
--- NOTE | 2018-06-13 15:51 | NUR ---
6 FR EXOSEAL R/GROIN IS CDI AND TR BAND TO R/WRIST IS CDI NO BLEEDING NOTED.VSS WITH CHEST PAIN DENIED. FAMILY IS PRESENT AT BEDSIDE NEEDS DENIED
--- NOTE | 2018-06-13 16:19 | NUR ---
TR BAND REMAINS TO R/WRIST CDI NO BLEEDING NOTED. PATIENT DENIED PAIN OR NEEDS
--- NOTE | 2018-06-13 16:38 | NUR ---
PATIENT VOICED NO PAIN OR NEEDS VSS AND TR BAND TO R/WRIST IS CDI. 6 FR EXOSEAL R/GROIN REMAINS CDI
--- NOTE | 2018-06-13 17:11 | NUR ---
PT SUPINE. RESTING COMFORTABLY. VSS. RIGHT GROIN DRESSING C/D/I. RIGHT PEDAL PULSE PALPABLE. RIGHT RADIAL TR BAND IN PLACE. NO BLEEDING/HEMATOMA NOTED. NO NEEDS AT THIS TIME.
--- NOTE | 2018-06-13 17:38 | NUR ---
HEAD OF BED INC TO 30 DEGREES. RIGHT GROIN DRESSING C/D/I. NO S/S OF HEMATOMA. 3cc OF AIR REMOVED FROM TR BAND. NO BLEEDING/HEMATOMA NOTED. DISCUSSED DISCHARGE INSTRUCTIONS WITH PT AND PT'S FAMILY.
--- NOTE | 2018-06-13 17:57 | NUR ---
3 CC AIR REMOVED FROM TR BAND WITH NO BLEEDING OR HEMATOMA NOTED
--- NOTE | 2018-06-13 18:04 | NUR ---
2 CC AIR REMOVED FROM TR BAND WITH NO BLEEDING NOTED
--- NOTE | 2018-06-13 18:11 | NUR ---
3 CC AIR REMOVED FROM TR BAND WITH NO BLEEDING. PIV REMOVED WITH DRESSING APPLIED. PATIENT DENIED CHEST PAIN UP TO GET DRESSED FOR DISCHARGE HOME
--- NOTE | 2018-06-13 18:26 | NUR ---
TR BAND REMOVED WITH DRESSING APPLIED. 6 FR EXOSEAL R/GROIN IS CDI AND PATIENT DENIED CHEST PAIN. LEFT VIA WC TO PARKING FOR TRANSPORT HOME NO DISTRESS NOTED
== END 2018-06-13 18:27 | disposition home or self-care (01) ==
LOC: D.CATH 11:17
PROVIDERS: ATTEND Internal Medicine Cardiovascular Disease
DX: I25.119 Atherosclerotic heart disease of native coronary artery with unspecified angina pectoris (principal); I51.7 Cardiomegaly; Z01.812 Encounter for preprocedural laboratory examination
CPT/HCPCS: 93458; C9600

== ENCOUNTER 2018-06-17 19:27 | Observation (INO) | payer MEDICARE, BC ==
[~2018-06-17] VITALS: Ht 182.9 cm; Wt 102.8 kg
--- NOTE | ~2018-06-17 | HEMODYNAMI ---
PATIENT:JORDON MARKS MEDICAL RECORD: [id number] : 51 [facility] [id number] ADMISSION DATE: 06/17/18 Generatedon:06/18/201816:24 Patient name: JORDON MARKS Patient #: [id number] SSN: : 1955 Date of study: 06/18/2018 Page: Of Hemodynamic Procedure Report Patient Data Patient Demographics Procedure consent was obtained First Name: JORDON Gender: Male Last Name: KENDRICK : 1955 [facility] Initial: QUINTIN Age: 63 year(s) Patient #: [id number] Race: Unknown Additional ID: [id number] Contact details Address: [address] [place] [address] State: [place] City: [place] Zip code: [address] Past Medical History Allergies: No known allergies Admission Admission Data Admission Date: 06/17/2018 Admission Time: 20:04 Room #: 2139 Lab Results Lab Result Date: 06/13/2018 Lab Result Time: 0:00 Biochemistry Name Units Result Min Max BUN mg/dl 20 --(----)*- 7 18 Creatinine mg/dl 1.5 --(----)-* 0.6 1.3 CBC Name Units Result Min Max Hematocrit % 48 --(-*--)-- 42 54 Hemoglobin g/dl 16.8 --(---*)-- 13.5 17.5 Procedure Procedure Types Cath Procedure Diagnostic Procedure LHC LHC w/Coronaries Procedure Description Procedure Date Procedure Date: 06/18/2018 Procedure Start Time: 16:06 Procedure End Time: 16:23 Procedure Staff Name Function Tali Perez RT Scrub Judd Gonzales RN Nurse Moe Chow MD Performing Physician Klever Swift RT Monitor Procedure Data Cath Procedure Fluoroscopy Diagnostic fluoroscopy Total fluoroscopy Time: 1.5 time: 1.5 min min Diagnostic fluoroscopy Total fluoroscopy dose: 436 dose: 436 mGy mGy Contrast Material Contrast Material Type Amount (ml) Isovue 300 40 Entry Location Entry Primary Successful Side Size Upsize Upsize Entry Closure Succes sful Closure Location (Fr) 1 (Fr) 2 (Fr) Remarks Device Remarks Femoral Left 5 Fr Exoseal artery Estimated blood loss: 10 ml Diagnostic catheters Device Type Used For End Catheter Placement MULTIPACK JL 4.0 5Fr Procedure catheter MULTIPACK 3DRC 5Fr Procedure catheter MULTIPACK Pigtail 5 Fr Procedure catheter Procedure Complications No complications Procedure Medications Medication Administration Route Dosage Oxygen etCO2 Nasal cannula 2 l/min Lidocaine 2% added to field 20 Heparin Flush Bag added to field 2 bags (1000units/500ml NS) 0.9% NaCl I.V. 100 ml/hr Versed I.V. 2 mg Fentanyl I.V. 100 mcg Versed I.V. 1 mg Fentanyl I.V. 50 mcg Versed I.V. 1 mg Fentanyl I.V. 50 mcg Hemodynamics Rest HGB: 16.8 (g/dl) Heart Rate: 86 (bpm) Pressure Samples Time Site Value (mmHg) Purpose Heart Use Rate(bpm) 16:07 AO 91/67(78) Snapshot 90 16:08 AO 111/74(90) Snapshot 99 16:13 LV 138/-3,11 Snapshot 96 16:14 AO 123/72(91) Pullback 92 16:14 LV 118/4,11 Pullback 92 Gradients Valve Time Site 1 Site 2 Mean SEP/DFP Peak To Heart Use (mmHg) (sec/min) Peak Rate (mmHg) (bpm) Aortic 16:14 LV AO 0 6 0 92 118/4,11 123/72(91) Calculations Valve P-P Mean Valve Index Valve Source Name Gradient Area Flow (cm2) Aortic 0 0 0 0 Snapshots Pre Cath Intra NCS Post Cath Vital Signs Time Heart Resp SPO2 etCO2 NIBP (mmHg) Rhythm Pain Sedation Rate (ipm) (%) (mmHg) Status Level (bpm) 15:58:56 89 17 97 0 159/97(127) NSR 0 (11) 10(A) , No pain 16:03:16 84 10 97 43.5 137/85(125) NSR 0 (11) 10(A) , No pain 16:07:24 95 18 93 0 110/90(108) NSR 0 (11) 9(A) , No pain 16:11:28 93 16 93 30.8 116/93(113) NSR 0 (11) 9(A) , No pain 16:15:00 92 13 92 34.5 138/97(135) NSR 0 (11) 9(A) , No pain 16:20:14 91 17 93 38.2 127/90(119) NSR 0 (11) 10(A) , No pain Medications Time Medication Route Dose Verified Delivered Reason Notes Eff ectiveness by by 15:55:52 Oxygen etCO2 2 Robin Buffie used for Nasal l/min [facility] javascript application developer cannula 16:00:01 Lidocaine 2% added 20ml Robin Robin for local to vial [facility] anesthetic field MD SORIANO 16:00:08 Heparin Flush added 2 Robin Robin used for Bag to bags [facility] procedure (1000units/500ml field MD SORIANO NS) 16:00:20 0.9% NaCl I.V. 100 Robin Buffie Per ml/hr [place] Gonzales RN physician 16:01:40 Versed I.V. 2 mg Robin Buffie used for [place] Janet SINGHjavascript application developer 16:01:47 Fentanyl I.V. [address] m[address] [facility] Gonzales RN sedation 16:08:27 Versed I.V. 1 mg Moe Buffie for Geraldo Gonzales RN sedation 16:08:58 Fentanyl I.V. 50 Moe Buffie for mcg Geraldo Gonzales RN sedation 16:12:48 Versed I.V. 1 mg Moe Buffie for Geraldo Gonzales RN sedation 16:12:51 Fentanyl I.V. 50 Moe Buffie for [facility]do Gonzales RN sedation Procedure Log Time Note 15:30:51 Tali Perez RT(R) sent for patient. Start room use. 15:37:34 Signed procedure consent form obtained from patient. 15:37:35 Diagnostic Cath status Elective 15:37:36 Time tracking: Regular hours (M-F 7:00 - 5:00) 15:37:39 Plan of Care:Hemodynamics will remain stable., Cardiac rhythm will remain stable., Comfort level will be maintained., Respiratory function will remain adequate., Patient/ family verbilizes understanding of procedure., Procedure tolerated without complication., Recovers from procedure without complications.. 15:51:30 Patient received from Med II to [facility] 1 Alert and oriented. Tansferred to table in Supine position. 15:51:31 Warm blankets applied, and yuval hugger turned on for patient comfort. 15:51:31 Correct patient and procedure confirmed by team. 15:51:32 ECG and BP/O2 sat monitors applied to patient. 15:51:42 H&P Date Dictated: 06/17/2018 Within 30 days and on chart.. 15:51:46 Pre-procedure instructions explained to patient. 15:51:46 Pre-op teaching completed and patient verbalized understanding. 15:51:48 Family in patients room. 15:51:49 Patient NPO since Midnight. 15:51:54 Patient allergic to No known allergies 15:55:52 Oxygen 2 l/min etCO2 Nasal cannula was administered by Judd Gonzales RN; used for procedure; 15:57:48 Vital chart was started 15:57:50 Baseline sample Acquired. 15:58:02 Rhythm: sinus rhythm 15:58:06 Full Disclosure recording started 15:58:12 Is patient on blood thinner?Yes 15:58:14 ACC The patient was administered the following blood thiners within the last 24 hours: ACCPlavix 15:58:17 Patient diabetic? No. 15:58:19 Previous problem with sedation/anesthesia? No ? 15:58:21 Snore? Yes 15:58:22 Sleep apnea? Yes 15:58:23 Deviated septum? No 15:58:24 Opens mouth fully? Yes 15:58:25 Sticks out tongue? Yes 15:58:27 Airway obstruction? No ? 15:58:29 Dentures? No ? 15:58:33 Pre procedure: left dorsailis pedis pulse 1+ Palpable, but thready & weak; easily obliterated 15:59:09 Patient pain scale 0/10 ?. 15:59:13 IV patent on arrival in right forearm with 0.9% NaCl at O. 15:59:15 Lab results completed and on chart. 15:59:18 Left groin area was prepped with chlora-prep and draped in sterile fashion 15:59:21 Alarms reviewed by R. N. 15:59:21 Sharps counted by scrub and verified by R.N. 15:59:24 --------ALL STOP TIME OUT------ 15:59:24 Final Timeout: patient, procedure, and site verified with staff and physician. All members of the team are in agreement. 15:59:27 Left groin site verified by team. 15:59:30 Maximum allowable Isovue 300 dose 300ml. Physician notified. (300ml for normal creatinines. For patients with creatinine of 1.7 or higher multiply weight(kg) x 5 divided by creatinine.) 15:59:34 Fire Safety Assessment: A--An alcohol-based skin anteseptic being used preoperatively., C--Open oxygen or nitrous oxide is being used., D--An ESU, laser, or fiber-optic light is being used. 15:59:45 Physical assessment completed. ASA score P 2 - A patient with mild systemic disease as per Moe Chow MD. 16:00:01 Lidocaine 2% 20ml vial added to field was administered by Robin Calderon MD; for local anesthetic; 16:00:08 Heparin Flush Bag (1000units/500ml NS) 2 bags added to field was administered by Robin Calderon MD; used for procedure; 16:00:12 Sedation plan: IV Moderate Sedation Medication:Versed, Fentanyl 16:00:20 0.9% NaCl 100 ml/hr I.V. was administered by Judd Gonzales RN; Per physician; 16:01:40 Versed 2 mg I.V. was administered by Judd Gonzales RN; used for procedure; 16:01:47 Fentanyl 100 mcg I.V. was administered by Judd Gonzales RN; for sedation; 16:04:04 Use device set Femoral Dx 16:05:06 Tegaderm 4 x 4 (1626W) opened to sterile field. 16:05:07 ACIST Manifold (79242) opened to sterile field. 16:05:08 ACIST Hand Control (15376) opened to sterile field. 16:05:09 ACIST Syringe (13646) opened to sterile field. 16:05:10 Bag Decanter (2002S) opened to sterile field. 16:05:10 Medline Cath Pack ([id number]) opened to sterile field. 16:05:12 SHEATH 5FR Dazey (MIB263) opened to sterile field. 16:05:13 DIAGNOSTIC Multipack 5Fr catheter set (FJ2090) opened to sterile field. 16:05:15 DIAGNOSTIC WIRE .035 260cm J wire (952170) opened to sterile field. 16:06:13 Procedure started. 16:06:18 Local anesthetic to left femerol artery with Lidocaine 2% by Moe Chow MD.INITIAL ACCESS ONLY 16:06:43 A 5 Fr sheath was inserted into the Left Femoral artery 16:07:10 A MULTIPACK JL 4.0 5Fr catheter was advanced over the wire and used for Procedure. 16:07:53 LCA angiography performed. 16:08:27 Versed 1 mg I.V. was administered by Judd Gonzales RN; for sedation; 16:08:58 Fentanyl 50 mcg I.V. was administered by Judd Gonzales RN; for sedation; 16:09:20 Catheter exchanged over wire. 16:10:33 A MULTIPACK 3DRC 5Fr catheter was advanced over the wire and used for Procedure. 16:11:12 RCA angiography performed. 16:11:19 Catheter exchanged over wire. 16:12:33 A MULTIPACK Pigtail 5 Fr catheter was advanced over the wire and used for Procedure. 16:12:48 Versed 1 mg I.V. was administered by Judd Gonzales RN; for sedation; 16:12:51 Fentanyl 50 mcg I.V. was administered by Judd Gonzales RN; for sedation; 16:12:51 Zero performed for pressure channel P1 16:12:55 Zero performed for pressure channel P1 16:13:46 LV angiography performed. 16:13:47 LV gram done using REED 16:14:07 EF : 35 % 16:14:09 LV hemodynamics recorded. 16:14:18 Injector settings: Ml/sec: 10, Volume: 20, 16:14:20 Catheter exchanged over wire. 16:14:22 EXOSEAL 5Fr (EX500) opened to sterile field. 16:15:33 Sheath removed intact; hemostasis achieved with Exoseal to the Left Femoral artery. 16:15:52 Procedure ended.(Physican Out) 16:16:05 Fluoroscopy time 01.50 minutes. 16:16:09 Fluoroscopy dose: 436 mGy 16:16:09 Flurop Dose total: 436 16:16:13 Contrast amount:Isovue 300 40ml. 16:16:15 Sharps counted by scrub and verified by R.N. 16:16:22 Insertion/operative site no bleeding no hematoma. 16:16:26 Post-op/insertion site Left Femoral artery dressed using a 4 x 4 and Tegaderm. 16:16:32 Post Procedure Pulses reassessed and unchanged 16:16:35 Post-procedure physical assessment completed. ASA score P 2 - A patient with mild systemic disease as per Moe Chow MD. 16:16:42 Post procedure rhythm: unchanged. 16:16:49 Estimated blood loss: 10 ml 16:16:51 Post procedure instruction explained to patient.Patient verbalizes understanding. 16:16:51 Patient needs reinforcement of post procedure teaching. 16:17:13 Procedure and supply charges have been captured, reviewed, submitted and are correct. 16:17:16 Procedure Complication : No complications 16:23:26 Vital chart was stopped 16:23:27 See physician's report for complete and final results. 16:23:29 Report given to PCU. 16:23:32 Patient transfered to PCU with Bed. 16:23:34 Procedure ended. 16:23:34 Full Disclosure recording stopped 16:24:01 End room use (Document Last) Device Usage Item Name Manufacture Quantity Catalog Hospital Part Current Minimal L ot# / Number Charge Number Stock Stock Serial# Code Tegaderm 4 3M 1 1626W [id number] 103536 5 x 4 (1626W) ACIST Acist 1 31568 311147 771985 152667 5 Manifold Medical (00229) Systems Inc ACIST Hand Acist 1 36290 436545 970468 465106 5 Control Medical (16363) Systems Inc ACIST Acist 1 45963 963475 849289 186749 20 Syringe Medical (87272) Systems Inc Bag Microtek 1 650636 12230 799845 5 Decanter Medical Inc. () Medline Medline 1 [id number] 517957 70261 703769 5 Cath Pack ([id number]) SHEATH 5FR Terumo 1 ZXR659 446837 591194 399439 5 Dazey (ZEG507) DIAGNOSTIC Cardinal 1 IF6000 737119 62059 259507 30 Multipack Health 5Fr catheter set (OO4386) DIAGNOSTIC [facility] 1 525455 119155 582633 540397 30 WIRE .035 260cm J wire (995021) MULTIPACK Cardinal 1 988511 5 JL 4.0 5Fr Health catheter MULTIPACK Cardinal 1 833704 5 3DRC 5Fr Health catheter MULTIPACK Cardinal 1 616177 5 Pigtail 5 Health Fr catheter EXOSEAL 5Fr Cardinal 1 EX500 918306 797476 467160 10 (EX500) Health Signature Audit Milroy Stage Time Signature Unsigned Intra-Procedure 06/18/2018 Klever Swift 4:24:13 PM RT(R) Signatures Monitor : Klever Swift RT Signature : Date : Time : [address] [place] [address]
[~2018-06-17 19:27] MED LIST changes: +ASPIRIN81 MG PO; +CRESTOR10 MG PO; +FISH OIL 1,0001 CA1 PO; +LUNESTA2 M1 PO; +PROLENSA; +VASOTEC10 MG PO
[2018-06-17 19:51] LABS: BASOPHILS 0.4 % (0-2); EOSINOPHILS 4.1 % (0-7); HEMATOCRIT 49.1 % (42.0-54.0); HEMOGLOBIN 17.1 g/dL (13.5-17.5); IMMATURE GRANULOCYTES 0.2 % (0-5); LYMPHOCYTES 27.9 % (15-50); MCHC 34.8 g/dL (31.0-37.0); MCV 91.8 fL (80.0-100.0); MEAN PLATELET VOLUME 11.6 fL (7.4-10.4); MONOCYTES 8.1 % (2-11); NEUTROPHILS 59.3 % (40-80); PLATELET COUNT 208 10x3/uL (130-400); RBC 5.35 10x6/uL (4.20-6.10); WBC 8.1 10x3/uL (4.8-10.8)
[2018-06-17 20:03] LABS: APTT 31.5 SECONDS (22.8-39.4); INR 0.99 (0.85-1.17); PROTIME 12.6 SECONDS (11.6-15.0)
[2018-06-17 20:11] LABS: ALBUMIN 3.8 g/dL (3.4-5.0); ALKALINE PHOSPHATASE 73 U/L (46-116); ALT (SGPT) 27 U/L (10-68); CALC OSMOLALITY 283 mosm/kg (275-300); CALCIUM 8.4 mg/dL (8.5-10.1); CHLORIDE - SERUM 105 mmol/L (98-107); CREATININE - SERUM 1.5 mg/dL (0.6-1.3); GLUCOSE 100 mg/dL (74-106); POTASSIUM - SERUM 4.2 mmol/L (3.5-5.1); PROTEIN - SERUM 7.5 g/dL (6.4-8.2); SODIUM 142 mmol/L (136-145); UREA NITROGEN 15 mg/dL (7-18); eGFR NON AFRICAN AMERICAN 50 mL/min (90-120)
[2018-06-17 20:28] LABS: CKMB 0.6 U/L (0.0-3.6); CREATINE KINASE 57 UL (21-232); MAGNESIUM - SERUM 2.3 mg/dL (1.8-2.4)
[2018-06-17 20:35] LABS: TROPONIN-I 0.062 ng/mL (0.000-0.060)
[2018-06-17 20:36] VITALS: BP 135/75
[2018-06-17 22:37] VITALS: BP 125/73; BMI 30.7
--- NOTE | 2018-06-17 23:06 | NUR ---
RECIEVED REPORT FROM CEFERINO SINGH IN ER. ARRIVED TO FLOOR IN W/C WITH STAFF AND SPOUSE ACCOMPANYING. ALERT AND ORIENTED X4. UP AD DARION TO TOILET. IV TO RIGHT AC SL.. GENERALIZED EDEMA TO RIG HT LOWER EXTREMITY. DSG AND BRUISING TO RIGHT GROIN. PT STATES SITE IS PAINFUL. LUNG SOUNDS CLEARE BILATERALLY. ABSX4. DENIES ANY NEEDS. ASSESSMENT COMPLETE.
[2018-06-18] VITALS (10 sets, daily range): BP systolic 101–158; BP diastolic 56–86; Ht 182.9 cm; Wt 102.8 kg
--- NOTE | 2018-06-18 09:46 | NUR ---
I have reviewed this patient and I concur with the Shift Assessment completed by the Licensed Practical Nurse today this shift.
--- NOTE | 2018-06-18 10:21 | NUR ---
HEART CATH CONSENTS SIGNED. PT HAS BEEN NPO SINCE MIDNIGHT. STATED TO PT AND PT'S THAT ODILON ERICKSON STATED TO ME THAT HE WILL BE GOING AROUND 1300. THEY BOTH VERBALIZED UNDERSTANDING.
[2018-06-18 11:03] LABS: ANION GAP 10.6 mmol/L (8-16); CALCIUM 8.8 mg/dL (8.5-10.1); CARBON DIOXIDE 29.4 mmol/L (21.0-32.0); CREATININE - SERUM 1.4 mg/dL (0.6-1.3)
[2018-06-18 11:41] LABS: HEMATOCRIT 47.7 % (42.0-54.0); HEMOGLOBIN 16.8 g/dL (13.5-17.5); LYMPHOCYTES 30.4 % (15-50); MCH 32.2 pg (26.0-34.0); MCHC 35.2 g/dL (31.0-37.0); MCV 91.6 fL (80.0-100.0); MEAN PLATELET VOLUME 11.1 fL (7.4-10.4); NEUTROPHILS 60.9 % (40-80); RBC 5.21 10x6/uL (4.20-6.10); RDW 13.8 % (11.5-14.5)
[2018-06-18 11:43] LABS: PLATELET COUNT 166 10x3/uL (130-400); WBC 5.5 10x3/uL (4.8-10.8)
--- NOTE | 2018-06-18 16:28 | NUR ---
SPOKE WITH LINUS FROM [facility] SHE STATES PT HAS NO INTERVENTIONS FOR HEART CATH. LEFT GROIN. SHE GAVE 200 FENTANYL AND 4 VERSED. AND SHE STATES PT WILL START A TRIAL OF RANEXA.
--- NOTE | 2018-06-18 16:35 | NUR ---
PT RETURNED FROM [facility]. ALERT AND ORIENTED. ROOM AIR. RIGHT AC IV NS INFUSING. LEFT GROIN SOFT, SHOWS NO S/S OF HEMATOMA, DRESSING C/D/I. PP CHECKED. BED LOW. CL IN REACH. WILL CONTINUE TO MONITOR.
--- NOTE | 2018-06-18 16:50 | NUR ---
PT LYING FLAT. ALERT AND ORIENTED. VS STABLE. LEFT GROIN SOFT, DRESSING C/D/I. PP CHECKED. BED LOW. CL IN REACH. WILL CONTINUE TO MONITOR.
--- NOTE | 2018-06-18 17:18 | NUR ---
PT'S STATES DR. RUFF STATED TO HER HE WILL NOT DC UNTIL TOMORROW SINCE THEY ARE STARTING A NEW MEDICATION AND SHE ASKED ABOUT HIS HOME MEDS. COULD NOT GET SOMEONE FROM [facility] TO ANSWER. PAGED DR. RUFF.
--- NOTE | 2018-06-18 17:23 | NUR ---
DR RUFF TO CALL BACK AND PATIENT IS TO BE DISCHARGED TOMORROW. TO SPEND THE NIGHT TONIGHT AND TO CONTINUE HOME MEDICATIONS. THIS IS RELAYED TO THE PATIENT.
--- NOTE | 2018-06-18 17:50 | NUR ---
PT LYING FLAT. ALERT AND ORIENTED. VS STABLE. LEFT GROIN SOFT, DRESSING C/D/I. PP CHECKED. BED LOW. CL IN REACH. WILL CONTINUE TO MONITOR. AND VISITORS AT BEDSIDE.
--- NOTE | 2018-06-18 18:09 | NUR ---
PT STATES HE WANTS TO WAIT TO TAKE HOME MEDS THAT WERE RESTARTED UNTIL HE EATS.
--- NOTE | 2018-06-18 18:34 | NUR ---
PT'S HOB RAISED GRADUALLY. LEFT GROIN SOFT, DRESSING C/D/I. PP CHECKED. PT NOW SITTING UP EATING DINNER TRAY. VISITORS AT BEDSIDE.
--- NOTE | 2018-06-18 18:50 | NUR ---
CALLED PHARMACY AND SPOKE WITH JACQUES ABOUT GETTING THE VASOTEC IN THE [place]. HE STATES THEY KNOW ABOUT IT BUT IT'S ONE PHARMACIST AND ONE TECH AND THEY ARE GETTING SLAMMED RIGHT NOW SO IT WILL BE AWHILE.
--- NOTE | 2018-06-18 22:30 | NUR ---
REST QUIETLY IN BED, CALL LIGHT IN REACH.
[2018-06-19] VITALS: BP 112/60
--- NOTE | 2018-06-19 00:29 | NUR ---
URINE SAMPLE COLLECTED AND SENT IT TO LAB.
[2018-06-19 01:16] LABS: APPEARANCE CLEAR (CLEAR); BILIRUBIN NEGATIVE (NEGATIVE); COLOR YELLOW (YELLOW); GLUCOSE NEGATIVE (NEGATIVE); KETONE NEGATIVE (NEGATIVE); NITRITE NEGATIVE (NEGATIVE); PROTEIN NEGATIVE (NEGATIVE); UROBILINOGEN NORMAL (NORMAL)
--- NOTE | 2018-06-19 03:50 | NUR ---
I have reviewed this patient and I concur with the Shift Assessment completed by the Licensed Practical Nurse today this shift.
[2018-06-19 04:00] VITALS: BP 93/60
[2018-06-19 06:59] LABS: BASOPHILS 0.3 % (0-2); EOSINOPHILS 2.8 % (0-7); HEMATOCRIT 47.5 % (42.0-54.0); HEMOGLOBIN 16.6 g/dL (13.5-17.5); IMMATURE GRANULOCYTES 0.1 % (0-5); MCH 31.9 pg (26.0-34.0); MCHC 34.9 g/dL (31.0-37.0); MCV 91.2 fL (80.0-100.0); MEAN PLATELET VOLUME 11.9 fL (7.4-10.4); MONOCYTES 8.1 % (2-11); NEUTROPHILS 63.7 % (40-80); PLATELET COUNT 198 10x3/uL (130-400); RBC 5.21 10x6/uL (4.20-6.10)
[2018-06-19 07:17] LABS: WBC 7.8 10x3/uL (4.8-10.8)
[2018-06-19 07:30] LABS: ANION GAP 14.5 mmol/L (8-16); CALCIUM 8.4 mg/dL (8.5-10.1); CARBON DIOXIDE 26.6 mmol/L (21.0-32.0); CREATININE - SERUM 1.6 mg/dL (0.6-1.3); POTASSIUM - SERUM 4.1 mmol/L (3.5-5.1)
--- NOTE | 2018-06-19 08:30 | NUR ---
PT RESTING IN BED WITH SPOUSE PRESENT. PT IS READY TO DISCHARGE. DISCUSSED NEEDING APPROVAL FROM ATTENTING MD FIRST, PT VERBALIZES UNDERSTANDING. DENIES PAIN AT THIS TIME, DENIES NEEDS AT THIS. WILL CONT TO FOLLOW PLAN OF CARE
[2018-06-19 08:57] VITALS: BP 107/71
[2018-06-19] MEDS ORDERED: RANEXA500 MG PO (11:40)
[2018-06-19 11:59] VITALS: BP 94/51
--- NOTE | 2018-06-19 12:58 | NUR ---
PIV REMOVED WITH CATHETER TIP INTACT, TELEMETRY REMOVED AND RETURNED TO [employer], [facility]AN[facility]. WILL CONT TO FOLLOW POC
--- NOTE | 2018-06-19 13:46 | NUR ---
DISCHARGE INSTRUCTIONS REVIEWED WITH PT, ALL QUESTIONS ANSWERED. ASSISTED PT TO THE FRONT AND LEFT WITH
== END 2018-06-19 13:47 | disposition home or self-care (01) ==
LOC: D.ER 19:27 → D.M2 20:04 → OBSVTIME 20:04 → D.EDHOLD 20:04 → D.M2 20:37
PROVIDERS: Family Medicine; Internal Medicine Cardiovascular Disease; Internal Medicine Nephrology; ADMIT Family Medicine; ATTEND Family Medicine
DX: I21.4 Non-ST elevation (NSTEMI) myocardial infarction (principal); I10 Essential (primary) hypertension; E78.5 Hyperlipidemia, unspecified; I25.110 Atherosclerotic heart disease of native coronary artery with unstable angina pectoris; N17.9 Acute kidney failure, unspecified

== ENCOUNTER → 2020-06-18 09:01 | Outpatient (CLI) | payer MEDICARE, BC ==
[2018-06-18 17:54] VITALS: BMI 30.7
[~2020-06-18 09:01] MED LIST changes: +RANEXA500 MG PO
== END | disposition home or self-care (01) ==
LOC: D.HCCARDIO 09:01
PROVIDERS: ATTEND Internal Medicine Cardiovascular Disease
DX: R06.09 Other forms of dyspnea (principal)

== ENCOUNTER 2020-06-24 12:02 | Day surgery (SDC) | payer MEDICARE, BC ==
[~2020-06-24] VITALS: Ht 182.9 cm; Wt 96.4 kg
--- NOTE | ~2020-06-24 | HEMODYNAMI ---
PATIENT:JORDON MARKS MEDICAL RECORD: [id number] : 51 LOCATION:D.CAT ADMISSION DATE: 06/24/20 Generatedon:115:01 Patient name: JORDON MARKS Patient #: [id number] SSN: [id number] : 1955 Date of study: 06/24/2020 Page: Of Hemodynamic Procedure Report Patient Data Patient Demographics Procedure consent was obtained First Name: JORDON Gender: Male Last Name: KENDRICK : 1955 Middle Initial: QUINTIN Age: 65 year(s) Patient #: [id number] Race: SSN: [id number] Additional ID: [id number] Contact details Address: [address] [place] [address] State: [place] City: [place] Zip code: [address] Past Medical History Allergies: No known allergies Admission Admission Data Admission Date: 06/24/2020 Admission Time: 12:02 Arrival Date: 06/24/2020 Arrival Time: 0:00 Admit Source: Other Insurance Payor: Medicare [facility] #: [id number] Height (in.): 72 BSA: 2.19 (m2) Height (cm.): 182.88 BMI: 28.81 (kg/m2) Weight (lbs.): 212.44 Weight (kg.): 96.36 Lab Results Lab Result Date: 06/24/2020 Lab Result Time: 0:00 Biochemistry Name Units Result Min Max BUN mg/dl 27 --(----)-* 7 18 Creatinine mg/dl 1.4 --(----)*- 0.6 1.3 eGFR ml/min 54 *-(----)-- 90 120 NONAFRICAN CBC Name Units Result Min Max Hematocrit % 44.7 --(*---)-- 42 54 Hemoglobin g/dl 15.1 --(-*--)-- 13.5 17.5 Procedure Procedure Types Cath Procedure Diagnostic Procedure [facility] w/Coronaries FFR/IVUS FFR Initial Sedation Charges Moderate Sedation 40-54 minutes PCI Procedure Coronary Stent Coronary Stent Initial Hemochron ACT Test Procedure Description Procedure Date Procedure Date: 06/24/2020 Procedure Start Time: 14:13 Procedure End Time: 14:55 Procedure Staff Name Function Moe Chow MD Performing Physician Astrid Higgins RT Monitor Heather Landa, RN Nurse Dolores Salas RT Scrub Procedure Data Cath Procedure Fluoroscopy Diagnostic fluoroscopy Total fluoroscopy Time: 8.3 time: 8.3 min min Diagnostic fluoroscopy Total fluoroscopy dose: 975 dose: 975 mGy mGy Contrast Material Contrast Material Type Amount (ml) Isovue 370 123 Entry Location Entry Primary Successful Side Size Upsize Upsize Entry Closure Succes sful Closure Location (Fr) 1 (Fr) 2 (Fr) Remarks Device Remarks Femoral Right 5 Fr 6 Fr artery Short Estimated blood loss: 10 ml Diagnostic catheters Device Type Used For End Catheter Placement MULTIPACK JL 4.0 5Fr Procedure catheter MULTIPACK 3DRC 5Fr Procedure catheter MULTIPACK Pigtail 5 Fr Procedure catheter Procedure Complications No complications Procedure Medications Medication Administration Route Dosage Oxygen etCO2 Nasal cannula 2 l/min Lidocaine 2% added to field 20 Heparin Flush Bag added to field 2 bags (1000units/500ml NS) 0.9% NaCl I.V. 100 ml/hr Fentanyl I.V. 50 mcg Versed I.V. 1 mg Fentanyl I.V. 50 mcg Versed I.V. 1 mg Versed I.V. 0.5 mg Versed I.V. 0.5 mg Heparin Bolus I.V. 36235 units Hemodynamics Rest BSA: 2.19 (m2) HGB: 15.1 (g/dl) O2 Consumption: Estimated: 240.54 (ml/min) O2 Co nsumption indexed: Estimated:109.84 (ml/min/m) Heart Rate: 53 (bpm) Pressure Samples Time Site Value (mmHg) Purpose Heart Use Rate(bpm) 14:21 LV 98/5,12 Snapshot 66 14:21 AO 101/53(74) Pullback 65 14:21 LV 110/12,16 Pullback 65 Gradients Valve Time Site 1 Site 2 Mean SEP/DFP Peak To Heart Use (mmHg) (sec/min) Peak Rate (mmHg) (bpm) Aortic 14:21 LV AO 10 20 9 65 110/12,16 101/53(74) Calculations Valve P-P Mean Valve Index Valve Source Name Gradient Area Flow (cm2) Aortic 9 10 9 10 Snapshots Pre Cath Intra NCS Post Cath Vital Signs Time Heart Resp SPO2 etCO2 NIBP (mmHg) Rhythm Pain Sedation Rate (ipm) (%) (mmHg) Status Level (bpm) 13:56:39 63 17 100 0 127/76(107) NSR 0 (11) 10(A) , No pain 14:00:57 65 10 100 0 124/67(104) NSR 0 (11) 10(A) , No pain 14:05:09 65 16 100 0 115/72(95) NSR 0 (11) 10(A) , No pain 14:09:21 62 15 99 12.7 111/70(91) NSR 0 (11) 10(A) , No pain 14:13:33 63 13 98 36.6 110/66(91) NSR 0 (11) 10(A) , No pain 14:17:45 64 24 98 30.6 110/64(88) NSR 0 (11) 9(A) , No pain 14:21:59 64 11 99 18.6 117/62(91) NSR 0 (11) 9(A) , No pain 14:26:17 65 13 99 27.6 105/59(88) NSR 0 (11) 9(A) , No pain 14:30:27 68 13 99 30.6 101/57(78) NSR 0 (11) 9(A) , No pain 14:34:36 67 11 99 32.9 96/64(78) NSR 0 (11) 9(A) , No pain 14:38:44 67 14 99 35.1 102/58(77) NSR 0 (11) 9(A) , No pain 14:42:54 67 15 99 35.1 104/61(82) NSR 0 (11) 9(A) , No pain 14:47:04 63 13 99 32.1 103/62(78) NSR 0 (11) 9(A) , No pain 14:51:16 66 15 99 32.8 101/62(78) NSR 0 (11) 9(A) , No pain 14:55:24 67 17 100 32.9 105/64(83) NSR 0 (11) 9(A) , No pain 14:59:34 64 18 99 28.4 101/62(81) NSR 0 (11) 10(A) , No pain Medications Time Medication Route Dose Verified Delivered Reason Notes Effectiveness by by 13:57:06 Oxygen etCO2 2 Heather Heather for low 02 sats Nasal l/min Cordell Landa, cannula RN RN 13:57:17 Lidocaine 2% added 20ml Heather Moe for local to vial Geraldo Landa MD anesthetic field RN 13:57:25 Heparin Flush added 2 Heather Heather used for Bag to bags Cordell Landa procedure (1000units/500ml field RN RN NS) 13:57:38 0.9% NaCl I.V. 100 Heather Heather Per physician ml/hr Cordell Landa, RN RN 14:12:36 Fentanyl I.V. 50 Heather Heather for sedation mcg Cordell Landa, RN RN 14:12:40 Versed I.V. 1 mg Heather Heather for sedation Cordell Landa, FRANCISCO RN 14:16:04 Fentanyl I.V. 50 Heather Heather for sedation mcg Cordell Landa, FRANCISCO RN 14:16:07 Versed I.V. 1 mg Heather Heather for sedation Cordell Landa, FRANCISCO RN 14:18:28 Versed I.V. 0.5 Heather Heather for sedation mg Cordell Landa, RN RN 14:24:45 Heparin [place]V. 16[address] [place] [address] units Cordell Landa, anticoagulation units RN RN verified with dr. chow 14:24:45 Versed I.V. 0.5 Heather Heather for sedation mg Cordell Landa, RN commercial teller Log Time Note 13:17:27 Diagnostic Cath Status : Elective 13:18:10 Procedure Status Elective Heart Cath (OP). 13:41:58 Admit Source: Other 13:42:08 ACC Patient presents with Stable Angina CCS Anginal Class 2--Slight limitation of ordinary activity. 13:42:11 Time tracking: Regular hours (M-F 7:00 - 5:00) 13:42:16 Plan of Care:Hemodynamics will remain stable., Cardiac rhythm will remain stable., Comfort level will be maintained., Respiratory function will remain adequate., Patient/ family verbilizes understanding of procedure., Procedure tolerated without complication., Recovers from procedure without complications.. 13:42:18 Dolores Josue RT(R) sent for patient. Start room use. 13:42:29 H&P Date Dictated: 06/09/2020 Within 30 days and on chart.. 13:42:31 Pre-procedure instructions explained to patient. 13:42:31 Pre-op teaching completed and patient verbalized understanding. 13:42:33 Family in waiting room. 13:42:34 Patient NPO since Midnight. 13:42:42 Patient allergic to No known allergies 13:43:10 Patient pain scale 0/10 ?. 13:43:25 Lab results completed and on chart. 13:43:32 Alarms reviewed by R. N. 13:43:32 Sharps counted by scrub and verified by R.N. 13:45:20 Lab Result : BUN 27 mg/dl 13:45:20 Lab Result : eGFR NONAFRICAN 54 ml/min 13:45:20 Lab Result : Creatinine 1.4 mg/dl 13:45:20 Lab Result : Hemoglobin 15.1 g/dl 13:45:20 Lab Result : Hematocrit 44.7 % 13:46:23 Stress Test: yes; abnormal ANTERIOR, APICAL 13:46:30 Use device set Femoral Dx 13:46:31 ACIST Syringe (39754) opened to sterile field. 13:46:32 Bag Decanter (2002) opened to sterile field. 13:46:33 Medline Cath Pack ([id number]) opened to sterile field. 13:46:34 ACIST Hand Control (94938) opened to sterile field. 13:46:34 ACIST Manifold (72671) opened to sterile field. 13:46:35 DIAGNOSTIC Multipack 5Fr catheter set (YP6295) opened to sterile field. 13:46:36 SHEATH 5FR Cartwright (ZWZ104) opened to sterile field. 13:46:36 EMERALD Guide Wire (900-690) opened to sterile field. 13:46:39 Tegaderm 4 x 4 (1626W) opened to sterile field. 13:47:58 Arrival Date: 06/24/2020 12:00:00 AM 13:48:06 Patient Height : 72 inches 13:48:13 Patient Weight : 212.44 lbs 13:48:37 Insurance Payor : Medicare 13:49:07 Informed consent obtained and on chart 13:49:27 Patient received from Pre/Post Procedure Room to CCL 1 Alert and oriented. Tansferred to table in Supine position. 13:49:29 Warm blankets applied, and yuval hugger turned on for patient comfort. 13:49:29 Correct patient and procedure confirmed by team. 13:49:30 ECG and BP/O2 sat monitors applied to patient. 13:49:35 Is the patient allergic to Iodine/contrast media? No. 13:49:36 Was the patient premedicated? Yes 13:49:37 Is patient on blood thinner?Yes 13:49:39 Patient diabetic? No. 13:49:41 If diabetic: On Metformin? N/A 13:49:43 ----Pre-sedation anethsthesia assessment.---- 13:55:13 ACC The patient was administered the following blood thiners within the last 24 hours: ACCPlavix 13:55:17 Previous problem with sedation/anesthesia? No ? 13:55:18 Snore? Yes 13:55:19 Sleep apnea? Yes 13:55:20 Deviated septum? No 13:55:22 Opens mouth fully? Yes 13:55:23 Sticks out tongue? Yes 13:55:26 Airway obstruction? No ? 13:55:28 Dentures? No ? 13:55:31 Vital chart was started 13:55:33 Full Disclosure recording started 13:55:36 Baseline sample Acquired. 13:55:39 Rhythm: sinus rhythm 13:55:46 Pre procedure: right dorsailis pedis pulse 1+ Palpable, but thready & weak; easily obliterated 13:55:51 IV patent on arrival in left antecubital with 0.9% NaCl at [facility]. 13:55:56 Right groin area was prepped with chlora-prep and draped in sterile fashion 13:57:06 Oxygen 2 l/min etCO2 Nasal cannula was administered by Heather Landa RN; for low 02 sats; Verbal order read back and verified. 13:57:17 Lidocaine 2% 20ml vial added to field was administered by Moe Chow MD; for local anesthetic; Verbal order read back and verified. 13:57:25 Heparin Flush Bag (1000units/500ml NS) 2 bags added to field was administered by Heather Landa RN; used for procedure; Verbal order read back and verified. 13:57:38 0.9% NaCl 100 ml/hr I.V. was administered by Heather Landa RN; Per physician; Verbal order read back and verified. 14:07:00 --------ALL STOP TIME OUT------ 14:07:03 Final Timeout: patient, procedure, and site verified with staff and physician. All members of the team are in agreement. 14:07:07 Right groin site verified by team. 14:07:10 Fire Safety Assessment: A--An alcohol-based skin anteseptic being used preoperatively., C--Open oxygen or nitrous oxide is being used., D--An ESU, laser, or fiber-optic light is being used. 14:07:12 Physical assessment completed. ASA score P 2 - A patient with mild systemic disease as per Moe Chow MD. 14:07:15 3b) 30-44 Moderately reduced kidney function. 14:07:17 Maximum allowable contrast dose (3.7 X eGFR X 0.75)122 ml. 14:07:20 Sedation plan: IV Moderate Sedation Medication:Versed, Fentanyl 14:09:14 Zero performed for pressure channel P1 14:12:36 Fentanyl 50 mcg I.V. was administered by Heather Landa RN; for sedation; Verbal order read back and verified. 14:12:40 Versed 1 mg I.V. was administered by Heather Landa RN; for sedation; Verbal order read back and verified. 14:13:00 Procedure started. 14:13:18 Local anesthetic to right femoral artery with Lidocaine 2% by Moe Chow MD.INITIAL ACCESS ONLY 14:14:50 A 5 Fr sheath was inserted into the Right Femoral artery 14:15:12 A MULTIPACK JL 4.0 5Fr catheter was advanced over the wire and used for Procedure. 14:16:04 Fentanyl 50 mcg I.V. was administered by Heather Landa RN; for sedation; Verbal order read back and verified. 14:16:07 Versed 1 mg I.V. was administered by Heather Landa RN; for sedation; Verbal order read back and verified. 14:16:14 LCA angiography performed. 14:16:18 Injector settings: Ml/sec: 3, Volume: 6, 14:17:38 Catheter exchanged over wire. 14:18:22 A MULTIPACK 3DRC 5Fr catheter was advanced over the wire and used for Procedure. 14:18:28 Versed 0.5 mg I.V. was administered by Heather Landa, RN; for sedation; Verbal order read back and verified. 14:19:03 RCA angiography performed. 14:19:06 Injector settings: Ml/sec: 3, Volume: 6, 14:19:47 Catheter exchanged over wire. 14:20:46 A MULTIPACK Pigtail 5 Fr catheter was advanced over the wire and used for Procedure. 14:20:53 LV gram done using REED 14:21:27 LV hemodynamics recorded. 14:21:32 Injector settings: Ml/sec: 5, Volume: 15, 14:21:43 EF : 40 % 14:21:50 Catheter exchanged over wire. 14:21:52 Proceeding to intervention. 14:21:58 Use device set [employer] PCI 14:22:00 TUBING High Pressure Extension Tubing (Chow) ([id number]) opened to sterile field. 14:22:01 INFLATOR Merit BasixCompak (NU6915) opened to sterile field. 14:22:04 SHEATH 6FR Cartwright (NWZ533) opened to sterile field. 14:22:19 Sheath upsized to a 6 Fr Short. 14:23:07 GUIDE 6FR XBLAD 3.5 catheter ([id number]) opened to sterile field. 14:23:35 [place] OmniWire (95833) opened to sterile field. 14:24:19 6 Fr XBLAD 3.5 guide catheter was inserted over the wire 14:24:45 Heparin Bolus 70852 units I.V. was administered by Heather Landa RN; for anticoagulation; [address] chow Verbal order read back and verified. 14:24:45 Versed 0.5 mg I.V. was administered by Heather Landa RN; for sedation; Verbal order read back and verified. 14:25:42 Pressure wire advanced. 14:26:45 Wire advanced across lesion. 14:27:29 Pre PCI Site: [place] pLAD has 80% stenosis. 14:27:40 CHOICE PT Extra Support J 300cm guide wire ([id number]) opened to sterile field. 14:28:55 Inflate balloon Inflation number: 1 A EUPHORA 3.0 x 15 Balloon ([id number]) was prepped and advanced across the Prox LAD 80, then inflated to 14 DARLENE for 0:25 (min:sec) . 14:30:22 Inflation number: 2 The EUPHORA 3.0 x 15 Balloon ([id number]) was reinflated across the Prox LAD , to 15 DARLENE for 0:26 (min:sec) . 14:30:37 Balloon removed over the wire. 14:32:19 pLAD lesion measured at .80 with IFR 14:33:24 pLAD lesion measured at .88 with IFR 14:37:12 Balloon re-inserted over wire. 14:38:47 Inflation number: 3 The EUPHORA 3.0 x 15 Balloon ([id number]) was reinflated across the Prox LAD , to 16 DARLENE for 0:32 (min:sec) . 14:39:37 Balloon removed over the wire. 14:41:[address] LESION MEASUREMENT AT .89. 14:46:06 Place stent Inflation Number: 1 A JULIUS RX 3.0 x 18 stent ([id number]) was prepped and advanced across the Prox LAD1 . The stent was deployed at 14 DARLENE for 0:19 (min:sec) . 14:46:35 Stent catheter was removed intact over wire. 14:46:[address] LESION MEASUREMENT AT .90. 14:51:20 Wire removed. 14:51:20 Guide catheter removed. 14:51:23 EXOSEAL 6Fr (EX600) opened to sterile field. 14:51:33 Fluoroscopy time 08.30 minutes. 14:51:37 Flurop Dose total: 975 14:51:37 Fluoroscopy dose: 975 mGy 14:51:45 Dose Area Product 52548 mGy/cm. 14:53:05 Procedure ended.(Physican Out) 14:53:16 Contrast amount:Isovue 370 123ml. 14:53:20 Maximum allowable dose exceeded? No. 14:53:21 Sharps counted by scrub and verified by R.N. 14:53:27 Post-op/insertion site Right Femoral artery dressed using a 4 x 4 and Tegaderm. 14:53:33 Post right femoral artery:stable, soft, clean and dry 14:53:35 Post Procedure Pulses reassessed and unchanged 14:53:39 Post procedure: right dorsailis pedis pulse 1+ Palpable, but thready & weak; easily obliterated. 14:53:42 Post-procedure physical assessment completed. ASA score P 2 - A patient with mild systemic disease as per Moe Chow MD. 14:53:45 Post procedure rhythm: unchanged. 14:53:48 Estimated blood loss: 10 ml 14:53:50 Post procedure instruction explained to patient.Patient verbalizes understanding. 14:53:51 Patient needs reinforcement of post procedure teaching. 14:54:19 Procedure type changed to Cath procedure, Diagnostic procedure, LHC, LHC w/Coronaries, FFR/IVUS, FFR Initial, Sedation Charges, Moderate Sedation 40-54 minutes, PCI procedure, Coronary Stent, Coronary Stent Initial, Hemochron ACT Test 14:55:27 Procedure and supply charges have been captured, reviewed, submitted and are correct. 14:55:32 Procedure Complication : No complications 14:55:36 [facility] Findings: MVD- PCI performed (see procedure note) 14:55:38 Operative report dictated upon procedure completion. 14:55:38 See physician's report for complete and final results. 14:55:40 Report given to Pre/Post Procedure Room. 14:55:44 Patient transfered to Pre/Post Procedure Room with Stretcher. 14:55:46 Procedure ended. 14:55:46 Full Disclosure recording stopped 14:56:23 ACC-PCI Only Patient was given prescriptions, or instructed by Moe Chow MD to start/continue the following medications upon discharge: Plavix 14:56:25 End room use (Document Last) 14:57:35 End room use (Document Last) 14:57:58 End room use (Document Last) 15:00:20 ACT drawn and resulted at 342 seconds. (normal therapeutic range 180-240 seconds). 15:01:02 Vital chart was stopped Intervention Summary Intervention Notes Time ActionType Lesion and Equipment Used Action# Pressure Duration Attributes 14:28:55 Inflate Prox LAD EUPHORA 3.0 x 1 14 00:25 balloon 15 Balloon ([id number]) 14:30:22 Reinflate Prox LAD EUPHORA 3.0 x 2 15 00:26 balloon 15 Balloon ([id number]) 14:38:47 Reinflate Prox LAD EUPHORA 3.0 x 3 16 00:32 balloon 15 Balloon ([id number]) 14:46:06 Place stent Prox LAD1 JULIUS RX 3.0 x 1 14 00:20 18 stent ([id number]) Device Usage Item Name Manufacture Quantity Catalog Number Hospital Part Current M inimal Lot# / Charge Number Stock Stock Serial# Code ACIST Syringe Acist 1 60121 404490 959736 964863 2 0 (27274) Medical Systems Inc Bag Decanter Microtek 1 2001S 050040 19201 802752 5 () Medical Inc. Medline Cath Medline 1 [id number] 719851 27246 007159 5 Pack ([id number]) ACIST Hand Acist 1 30969 860280 940389 570744 5 Control Medical (61634) Systems Inc ACIST Manifold Acist 1 60806 861041 276841 893551 5 (91360) Medical Systems Inc DIAGNOSTIC Cardinal 1 PZ8715 636151 41640 316272 3 0 Multipack 5Fr Health catheter set (UZ4407) SHEATH 5FR Terumo 1 KON164 552549 237013 510262 5 Cartwright (YHU498) EMERALD Guide Cardinal 1 502-455 273262 444614 447877 5 Wire (502-455) Health Tegaderm 4 x 4 3M 1 1626W 943500 006136 957930 5 (1626W) MULTIPACK JL Cardinal 1 849171 5 4.0 5Fr Health catheter MULTIPACK 3DRC Cardinal 1 864671 5 5Fr catheter Health MULTIPACK Cardinal 1 779168 5 Pigtail 5 Fr Health catheter TUBING High Merit 1 [id number] 471918 49007 513177 1 0 Pressure Medical Extension Tubing (Chow) (TW9384U) INFLATOR Merit Merit 1 TR4893 145153 357950 195043 1 5 Metrilo Medical (AN2307) SHEATH 6FR Terumo 1 ZBU676 090808 825087 463407 4 0 Cartwright (FKO963) GUIDE 6FR Cardinal 1 [id number] 994949 659161 736263 1 0 XBLAD 3.5 Health catheter ([id number]) [place] 1 5548079 899275 53997 9958 5 OmniWire (65021) CHOICE PT [place] 1 [id number] 769547 127371 403679 5 Extra Support Scientific J 300cm guide wire ([id number]) EUPHORA 3.0 x Medtronic 1 [id number] 756767 585712 331095 5 [id number] 15 Balloon ([id number]) JULIUS RX 3.0 x Medtronic 1 [id number] 225079 8621422 065510 5 [id number] 18 stent ([id number]) EXOSEAL 6Fr Cardinal 1 EX600 665329 337093 095655 1 0 (EX600) Health Signature Audit Lesage Stage Time Signature Unsigned Intra-Procedure 06/24/2020 Astrid Higgins 2:57:35 PM RT(R) Intra-Procedure 06/24/2020 Heather Landa, 2:57:58 PM RN Intra-Procedure 06/24/2020 Moe Chow MD 3:01:00 PM [facility] [address] [place] [address]
[2020-06-24] MEDS ORDERED: HYDROCHLOROTH12.5 M1 PO (12:48)
[2020-06-24 12:56] VITALS: BP 122/73; Ht 182.9 cm; Wt 96.4 kg
[2020-06-24 13:19] LABS: BASOPHILS 0.5 % (0-2); EOSINOPHILS 3.6 % (0-7); HEMATOCRIT 44.7 % (42.0-54.0); HEMOGLOBIN 15.1 g/dL (13.5-17.5); IMMATURE GRANULOCYTES 0.2 % (0-5); LYMPHOCYTE ABS# 1.72 10x3/uL (1.32-3.57); LYMPHOCYTES 29.1 % (15-50); MCH 31.6 pg (26.0-34.0); MCHC 33.8 g/dL (31.0-37.0); MCV 93.5 fL (80.0-100.0); MEAN PLATELET VOLUME 11.3 fL (7.4-10.4); MONOCYTES 9.8 % (2-11); NEUTROPHIL ABS# 3.36 10x3/uL (1.78-5.38); NEUTROPHILS 56.8 % (40-80); RBC 4.78 10x6/uL (4.20-6.10); RDW 14.2 % (11.5-14.5); WBC 5.9 10x3/uL (4.8-10.8)
[2020-06-24 13:33] LABS: PLATELET COUNT 244 10x3/uL (130-400)
[2020-06-24 13:36] LABS: ANION GAP 11.8 mmol/L (8-16); CALCIUM 8.2 mg/dL (8.5-10.1); CARBON DIOXIDE 27.1 mmol/L (21.0-32.0); CHOL - HDL RATIO 2.9 ratio (2.3-4.9); CREATININE - SERUM 1.4 mg/dL (0.6-1.3); LDL-HDL RATIO 1.7 ratio (1.5-3.5); POTASSIUM - SERUM 3.9 mmol/L (3.5-5.1)
--- NOTE | 2020-06-24 15:04 | NUR ---
PT ARRIVED BY STRETCHER. PLACED ON MONITORS. ASSESSMENT COMPLETED. VSS AT THIS TIME. CALL LIGHT WITHIN REACH. FAMILY AT BEDSIDE.
--- NOTE | 2020-06-24 15:20 | NUR ---
RIGHT GROIN DRESSING C/D/I. NO S/S OF HEMATOMA NOTED. CALL LIGHT WITHIN REACH. FAMILY AT BEDSIDE. RIGHT PEDAL PULSE PALPABLE.
--- NOTE | 2020-06-24 15:50 | NUR ---
RIGHT GROIN DRESSING C/D/I. NO S/S OF HEMATOMA NOTED. RIGHT PEDAL PULSE PALPABLE. VSS AT THIS TIME. PT RESTING COMFORTABLY. CALL LIGHT WITHIN REACH.
--- NOTE | 2020-06-24 16:20 | NUR ---
RIGHT GROIN DRESSING C/D/I. NO S/S OF HEMATOMA NOTED. VSS. RIGHT PEDAL PULSE PALPABLE. PT RESTING COMFORTABLY. DENIES NAUSEA/PAIN. TOLERATING SIPS OF WATER.
--- NOTE | 2020-06-24 16:50 | NUR ---
RIGHT GROIN DRESSING C/D/I. NO S/S OF HEMATOMA NOTED. VSS AT THIS TIME. RIGHT PEDAL PULSE PALPABLE. CALL LIGHT WITHIN REACH.
--- NOTE | 2020-06-24 17:20 | NUR ---
RIGHT GROIN DRESSING C/D/I. NO S/S OF HEMATOMA NOTED. PT RESTING COMFORTABLY AT THIS TIME. VSS. CALL LIGHT WITHIN REACH. DENIES NAUSEA/PAIN.
--- NOTE | 2020-06-24 18:00 | NUR ---
RIGHT GROIN DRESSING C/D/I. NO S/S OF HEMATOMA NOTED. RIGHT PEDAL PULSE PALPABLE. HEAD OF BED INC TO 30 DEGREES. TOLERATED WELL. SET UP WITH SANDWICH TRAY AND DRINK. DENIES NAUSEA/PAIN. CALL LIGHT WITHIN REACH. NO NEEDS AT THIS TIME.
--- NOTE | 2020-06-24 18:30 | NUR ---
RIGHT GROIN DRESSING C/D/I. NO S/S OF HEMATOMA NOTED. PIV D/C'D WITH CATH TIP INTACT. TOLERATED WELL. DISCUSSED DISCHARGE INSTRUCTIONS WITH PT. HE VOICED UNDERSTANDING. PT INSTRUCTED TO GET UP AND DRESSED AT THIS TIME. CALL LIGHT LEFT WITHIN REACH.
--- NOTE | 2020-06-24 18:45 | NUR ---
PT AMBULATED TO RESTROOM. VOIDED WITHOUT DIFFICULTY. STEADY GAIT NOTED. RIGHT GROIN DRESSING C/D/I. NO S/S OF HEMATOMA NOTED. PT TAKEN OUT TO VEHICLE BY WHEELCHAIR. NO S/S OF DISTRESS NOTED. ALL BELONGINGS AND PAPERWORK IN HAND.
== END 2020-06-24 18:45 | disposition home or self-care (01) ==
LOC: D.CATH 12:02
PROVIDERS: ATTEND Internal Medicine Cardiovascular Disease
DX: I25.118 Atherosclerotic heart disease of native coronary artery with other forms of angina pectoris (principal); R94.39 Abnormal result of other cardiovascular function study; I10 Essential (primary) hypertension; I34.0 Nonrheumatic mitral (valve) insufficiency; R06.09 Other forms of dyspnea; R53.81 Other malaise
CPT/HCPCS: 93458; 93571; C9600